=== PATIENT | male | born 1950 | race Caucasian/White ===

== ENCOUNTER 2016-12-02 19:26 | Inpatient (IN) | payer MEDICARE ==
[~2016-12-02] VITALS: Ht 190.5 cm; Wt 61.7 kg
[~2016-12-02 19:26] MED LIST: ASCORBIC ACID500 MG ORAL; BACLOFEN10 MG ORAL; CALCIUM CITRAT480 GM PO; CALMOSEPTINE1 APPLIC TOPIC; CIPRO500 MG PO; COLACE CLEAR50 MG PO; FLEET ENEMA133 M1 RC; PAPAYA100 MG PO; ROYAL JELLY200 MG PO; SANTYL30 GM TP; TYLENOL EXTRA500 MG ORAL; VICODIN 5-5001 EACH PO; VITAMIN A10000 UNIT ORAL; VITAMIN B-12100 MCG ORAL; VITAMIN C250 MG ORAL; VITAMIN D-32000 UNI1 PO; VITAMIN D2000 UNI2 PO; VITAMIN D400 UNI2 PO; XANAX0.25 MG ORAL
--- NOTE | 2016-12-02 19:44 | Emergency Room Report ---
History of Present Illness General Chief Complaint: Generalized Weakness Source: Patient, EMS, Caregiver, PMD Present Illness HPI The patient is brought by EMS. According to the red mud thickener operator he had altered mentation today. She did not notice any cough. Paramedics had noticed cough and also is warm to touch. 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 He also has a suprapubic catheter. He eats by mouth and does not have a gastrostomy tube. The red mud thickener operator also states that he has a his sacral decubitus. His primary states he has been smoking a lot of THC. He has not been taking in fluids or much food. PMD concerned about severe dehydration. He denies pain - chest pain, headache, abdominal pain, extremity pain. Depressed at times. Weakness in all extremities. Allergies: Coded Allergies: ASPIRIN (Verified Adverse Reaction, Unknown, GI BLEED, 12/14/10) Patient History Past Medical History: see triage record Social History: Reports: drug use - thc Social History Narrative red mud thickener operator Reviewed Nursing Documentation: PMH: Agreed, PSxH: Agreed Nursing Documentation-PMH Hx Cancer: No Hx Gastrointestinal Problems: Yes Hx Neurological Problems: Yes - MS Hx Multiple Sclerosis: Yes Review of Systems All Other Systems: negative except mentioned in HPI Physical Exam Vital Signs Date Time Temp Pulse Resp B/P Pulse Ox O2 Delivery O2 Flow Rate FiO2 12/02/16 19:19 99.0 86 22 102/50 97 Room Air Sp02 EP Interpretation: reviewed, normal General Appearance: no apparent distress, alert, GCS 15, Chronically Ill Head: normocephalic Eyes: bilateral eye PERRL, bilateral eye normal inspection ENT: dry mucus membranes Neck: supple Respiratory: lungs clear, normal breath sounds, other - ronchorous cough Cardiovascular #1: regular rate, rhythm Cardiovascular #2: 2+ radial (R) Gastrointestinal: normal inspection, normal bowel sounds, non tender, no mass, non-distended, other - suprapubic cath Musculoskeletal: back normal, other - atrophy Neurologic: alert, oriented - X2 Psychiatric: depressed affect Reflexes: 3+ knee (R), 3+ knee (L) Skin: normal inspection, warm/dry, other - sacral decub Medical Decision Making Diagnostic Impression: Primary Impression: Pneumonia Qualified Codes: J18.1 - Lobar pneumonia, unspecified organism Additional Impressions: UTI (urinary tract infection) Qualified Codes: T83.510A - Infection and inflammatory reaction due to cystostomy catheter, initial encounter; N39.0 - Urinary tract infection, site not specified Multiple sclerosis Sacral decubitus ulcer Qualified Codes: L89.154 - Pressure ulcer of sacral region, stage 4 Dehydration ER Course Patient presents with altered mental status cough and fever. Differential includes sepsis, pneumonia, bronchitis, infection from other source (suprapubic cath). He is at high risk for aspiration with his multiple sclerosis. Evaluation will be with blood cultures, EKG, lactate, other labs, urinalysis and chest x-ray. CT of the head is not indicated at this time. The patient received aggressive fluid hydration and also antibiotics a been ordered. Labs remarkable for elevated WBC, pyuria, normal lactic acid. EKG unremarkable. CXR with infiltrate. Patient BP low. Hydration progressing slowly. Fluids increased. Improved. Admit med, Dr. Tijerina. Laboratory Tests Test 12/02/16 19:43 12/02/16 19:45 White Blood Count 13.9 K/UL (4.8-10.8) H Red Blood Count 4.15 M/UL (4.70-6.10) L Hemoglobin 13.0 G/DL (14.2-18.0) L Hematocrit 38.1 % (42.0-52.0) L Mean Corpuscular Volume 92 FL (80-99) Mean Corpuscular Hemoglobin 31.3 PG (27.0-31.0) H Mean Corpuscular Hemoglobin Concent 34.0 G/DL (32.0-36.0) Red Cell Distribution Width 13.1 % (11.6-14.8) Platelet Count 123 K/UL (150-450) L Mean Platelet Volume 7.6 FL (6.5-10.1) Neutrophils (%) (Auto) % (45.0-75.0) Lymphocytes (%) (Auto) % (20.0-45.0) Monocytes (%) (Auto) % (1.0-10.0) Eosinophils (%) (Auto) % (0.0-3.0) Basophils (%) (Auto) % (0.0-2.0) Differential Total Cells Counted 100 Neutrophils % (Manual) 83 % (45-75) H Lymphocytes % (Manual) 12 % (20-45) L Monocytes % (Manual) 3 % (1-10) Eosinophils % (Manual) 0 % (0-3) Basophils % (Manual) 0 % (0-2) Band Neutrophils 2 % (0-8) Platelet Estimate Decreased L Platelet Morphology Normal Anisocytosis 1+ Prothrombin Time 14.4 SEC (9.30-11.50) H Prothrombin Time INR 1.4 (0.9-1.1) H PTT 32 SEC (23-33) Sodium Level 139 mEQ/L (135-145) Potassium Level 4.4 mEQ/L (3.4-4.9) Chloride Level 101 mEQ/L (98-107) Carbon Dioxide Level 23 mEQ/L (20-30) Anion Gap 15 (5-15) Blood Urea Nitrogen 23 mg/dL (7-23) Creatinine 1.0 mg/dL (0.7-1.2) Estimate Glomerular Filtration Rate > 60 mL/min (>60) Glucose Level 112 mg/dL (74-106) H Lactic Acid Level 0.90 mmol/L (0.66-2.22) Calcium Level 8.0 mg/dL (8.6-10.2) L Total Bilirubin 0.5 mg/dL (0.0-1.2) Aspartate Amino Transferase (AST) 20 U/L (5-40) Alanine Aminotransferase (ALT) 7 U/L (3-41) Alkaline Phosphatase 59 U/L (40-129) Total Creatine Kinase 41 U/L (38-174) Troponin I < 0.30 ng/mL (<=0.30) Pro-B-Type Natriuretic Peptide 427 pg/mL (0-125) H Total Protein 6.0 g/dL (6.6-8.7) L Albumin 2.7 g/dL (3.5-5.2) L Globulin 3.3 g/dL Albumin/Globulin Ratio 0.8 (1.0-2.7) L Urine Color Pale yellow Urine Appearance Slightly cloudy Urine pH 9 (4.5-8.0) Urine Specific [place] 1.010 (1.005-1.035) Urine Protein 3+ (NEGATIVE) H Urine Glucose (UA) Negative (NEGATIVE) Urine Ketones Negative (NEGATIVE) Urine Occult Blood 5+ (NEGATIVE) H Urine Nitrite Positive (NEGATIVE) H Urine Bilirubin Negative (NEGATIVE) Urine Urobilinogen Normal MG/DL (0.0-1.0) Urine Leukocyte Esterase 3+ (NEGATIVE) H Urine RBC 10-15 /HPF (0 - 0) H Urine WBC 5-10 /HPF (0 - 0) H Urine Squamous Epithelial Cells None /LPF (NONE/OCC) Urine Amorphous Sediment Moderate /LPF (NONE) H Urine Bacteria Many /HPF (NONE) H EKG Diagnostic Results Rate: normal Rhythm: NSR ST Segments: no acute changes Rhythm Strip Diag. Results EP Interpretation: yes Rhythm: NSR, no PVC's, no ectopy Chest X-Ray Diagnostic Results Chest X-Ray Ordered: Yes # of Views/Limited/Complete: 1 View EP Interpretation: Yes Interpretation: no effusion, no pneumothorax, other - infiltrate retrocardiac Indication: Other Impression: Other Interpreting ER Provider: kika Last Vital Signs Date Time Temp Pulse Resp B/P Pulse Ox O2 Delivery O2 Flow Rate FiO2 12/03/16 01:03 97.5 68 21 110/60 97 Room Air Status: improved Disposition: ADMITTED INPATIENT Condition: Serious Braxton Miranda M.D. Dec 02, 2016 19:44
[2016-12-02] MEDS ORDERED: Acetaminophen 500mg (ES) tab ORAL ONE (19:45)
[2016-12-02] MEDS ORDERED: cefTRIAXone 1 GM in NS 55 ML IV ONE (19:45)
[2016-12-02 20:08] LABS: MEAN CORPUSCULAR HEMOGLOBIN 31.3 PG (27.0-31.0); MEAN CORPUSCULAR VOLUME 92 FL (80-99); MEAN PLATELET VOLUME 7.6 FL (6.5-10.1); PLATELET COUNT 123 K/UL (150-450); RED BLOOD COUNT 4.15 M/UL (4.70-6.10); RED CELL DISTRIBUTION WIDTH 13.1 % (11.6-14.8); WHITE BLOOD COUNT 13.9 K/UL (4.8-10.8)
[2016-12-02 20:09] VITALS: BP 110/47
[2016-12-02 20:24] LABS: INR 1.4 (0.9-1.1); PROTHROMBIN TIME 14.4 SEC (9.30-11.50)
[2016-12-02 20:32] LABS: TROPONIN I < 0.30 ng/mL (<=0.30)
[2016-12-02 20:35] LABS: ALANINE AMINOTRANSFERASE 7 U/L (3-41); ALBUMIN/GLOBULIN RATIO 0.8 (1.0-2.7); ANION GAP 15 (5-15); ASPARTATE AMINO TRANSFERASE 20 U/L (5-40); CARBON DIOXIDE 23 mEQ/L (20-30); CHLORIDE 101 mEQ/L (98-107); GLOMERULAR FILTRATION RATE > 60 mL/min (>60); HEMOLYSIS 160; POTASSIUM 4.4 mEQ/L (3.4-4.9); SODIUM 139 mEQ/L (135-145)
[2016-12-02 20:43] LABS: APPEARANCE,URINE SLIGHTLY CLOUDY; KETONES,URINE NEGATIVE (NEGATIVE); LEUKOCYTE ESTERASE ,URINE 3+ (NEGATIVE); NITRITE,URINE POSITIVE (NEGATIVE); PH,URINE 9 (4.5-8.0); PROTEIN,URINE 3+ (NEGATIVE); UROBILINOGEN,URINE NORMAL MG/DL (0.0-1.0)
[2016-12-02 20:56] LABS: AMORPHOUS SEDIMENT,UR MODERATE /LPF; BACTERIA,URINE MANY /HPF
[2016-12-02 21:13] LABS: ANISOCYTOSIS 1+; BAND NEUTROPHILS % (MANUAL) 2 % (0-8); BASOPHILS % (MANUAL) 0 % (0-2); EOSINOPHILS % (MANUAL) 0 % (0-3); LYMPHOCYTES % (MANUAL) 12 % (20-45); NEUTROPHILS % (MANUAL) 83 % (45-75); PLATELET ESTIMATE DECREASED; PLATELET MORPHOLOGY NORMAL; TOTAL CELLS COUNTED 100
[2016-12-02] MEDS ORDERED: NS 1000ml 2,200 ML IVLG ONE (22:15)
[2016-12-02 22:48] VITALS: BP 79/43
--- NOTE | 2016-12-02 22:56 | History and Physical ---
History of Present Illness General Date patient seen: Dec 02, 2016 Time patient seen: 19:00 Reason for Hospitalization: Generalized Weakness Present Illness HPI 66y/o male with pmh of advanced multiple sclerosis x 20 years, severe contractures, spasticity, chronic decubitus ulcers, chronic bladder dystonia s/ p suprapubic catheter who presents with AMS. Pt noted lives w/ full-time caregiver who noted pt to be more altered today. Pt has been smoking a lot of THC and has not been taking in much fluid or food. Paramedics noted pt to be coughing. Pt denies chest pain, SOB, f/c, n/v, d/c, abd pain. In ED, pt with fever to 102, labs showed WBC 13.3K. Pt given 1L NS bolus x2, ceftriaxone and levaquin. Allergies: Coded Allergies: ASPIRIN (Verified Adverse Reaction, Unknown, GI BLEED, 12/14/10) Medication History Scheduled Alprazolam* (Xanax*), 0.25 MG ORAL BEDTIME, (Reported) Ascorbic Acid* (Vitamin C*), 250 MG ORAL DAILY, (Reported) Ascorbic Acid* (Ascorbic Acid*), 500 MG ORAL TWICE A DAY, (Reported) Baclofen* (Baclofen*), 40 MG ORAL THREE TIMES A DAY, (Reported) Calcium Citrate (Calcium Citrate), 950 GM PO DAILY, (Reported) Cholecalciferol (Vitamin D3) (Vitamin D-3), 2,000 UNIT PO DAILY, (Reported) Cholecalciferol (Vitamin D3) (Vitamin D), 2,000 UNIT PO DAILY, (Reported) Ciprofloxacin* (Cipro*), 500 MG PO BID, (Reported) Cyanocobalamin (Vitamin B-12), 100 MCG ORAL DAILY, (Reported) Hydrocodone/Acetaminophen 5-500 (Vicodin 5-500), 1 TAB PO Q8H Papain (Papaya), 100 MG PO DAILY, (Reported) Kalida Jelly (Kalida Jelly), 1 SCOOP PO DAILY, (Reported) Vitamin A* (Vitamin A*), 10,000 UNIT ORAL DAILY, (Reported) Scheduled PRN Acetaminophen* (Tylenol Extra Strength*), 500 MG ORAL Q4HR PRN for Mild Pain/ Temp > 100.5, (Reported) Docusate Sodium (Colace Clear), 100 MG PO DAILY PRN for Constipation, (Reported) Menthol (Calmoseptine Ointment), 1 APPLIC TOPIC THREE TIMES A DAY PRN for rash, (Reported) Na Phos,M-B/Na Phos,Di-Ba (Fleet Enema), 133 ML RC DAILY PRN for Constipation, ( Reported) Miscellaneous Medications Cholecalciferol (Vitamin D3) (Vitamin D), 400 UNIT PO, (Reported) Collagenase Clostridium Hist. (Santyl), 1 APPLIC TP, (Reported) Patient History History Provided By: Patient, Medical Record, Caregiver, PMD Healthcare decision maker Resuscitation status Advanced Directive on File Family History Family History: Patient reports no known family medical history. Social History Social History: (1) Lives with caregiver Review of Systems ROS Narrative CONSTITUTIONAL: No weight loss, fever, chills, weakness or fatigue. HEENT: Eyes: No visual loss, blurred vision, double vision or yellow sclerae. Ears, Nose, Throat: No hearing loss, sneezing, congestion, runny nose or sore throat. SKIN: No rash or itching. CARDIOVASCULAR: No chest pain, chest pressure or chest discomfort. No palpitations or edema. RESPIRATORY: No shortness of breath, cough or sputum. GASTROINTESTINAL: No anorexia, nausea, vomiting or diarrhea. No abdominal pain or blood. NEUROLOGICAL: No headache, dizziness, syncope, paralysis, ataxia, numbness or tingling in the extremities. No change in bowel or bladder control. MUSCULOSKELETAL: No muscle, back pain, joint pain or stiffness. HEMATOLOGIC: No anemia, bleeding or bruising. LYMPHATICS: No enlarged nodes. No history of splenectomy. PSYCHIATRIC: No history of depression or anxiety. ENDOCRINOLOGIC: No reports of sweating, cold or heat intolerance. No polyuria or polydipsia. ALLERGIES: No history of asthma, hives, eczema or rhinitis. Physical Exam Physical Exam Narrative General: alert, cooperative, no distress, appears stated age Head: normocephalic, without obvious abnormality, atraumatic Eyes: conjunctivae/corneas clear. PERRL, EOM's intact Throat: lips, mucosa, and tongue normal. MMM Neck: supple, symmetrical, trachea midline, and no JVD Lungs: clear to auscultation bilaterally Heart: regular rate and rhythm, S1, S2 normal, no murmur, click, rub or gallop Abdomen: soft, non-tender, non-distended, bowel sounds normal; no masses or organomegaly : +suprapubic catheter c/d/i Extremities: extremities normal, atraumatic, no cyanosis or edema, +BLE contractures Pulses: 2+ and symmetric Skin: skin color, texture, turgor normal; no rashes or lesions Neurologic: grossly normal, no focal deficits Last 24 Hour Vital Signs Date Time Temp Pulse Resp B/P Pulse Ox O2 Delivery O2 Flow Rate FiO2 12/02/16 22:48 97.9 70 16 79/43 97 Room Air 12/02/16 20:09 102.1 75 20 110/47 98 Room Air 12/02/16 19:19 99.0 86 22 102/50 97 Room Air Laboratory Tests Test 12/02/16 19:43 12/02/16 19:45 White Blood Count 13.9 K/UL (4.8-10.8) H Red Blood Count 4.15 M/UL (4.70-6.10) L Hemoglobin 13.0 G/DL (14.2-18.0) L Hematocrit 38.1 % (42.0-52.0) L Mean Corpuscular Volume 92 FL (80-99) Mean Corpuscular Hemoglobin 31.3 PG (27.0-31.0) H Mean Corpuscular Hemoglobin Concent 34.0 G/DL (32.0-36.0) Red Cell Distribution Width 13.1 % (11.6-14.8) Platelet Count 123 K/UL (150-450) L Mean Platelet Volume 7.6 FL (6.5-10.1) Neutrophils (%) (Auto) % (45.0-75.0) Lymphocytes (%) (Auto) % (20.0-45.0) Monocytes (%) (Auto) % (1.0-10.0) Eosinophils (%) (Auto) % (0.0-3.0) Basophils (%) (Auto) % (0.0-2.0) Differential Total Cells Counted 100 Neutrophils % (Manual) 83 % (45-75) H Lymphocytes % (Manual) 12 % (20-45) L Monocytes % (Manual) 3 % (1-10) Eosinophils % (Manual) 0 % (0-3) Basophils % (Manual) 0 % (0-2) Band Neutrophils 2 % (0-8) Platelet Estimate Decreased L Platelet Morphology Normal Anisocytosis 1+ Prothrombin Time 14.4 SEC (9.30-11.50) H Prothromb Time International Ratio 1.4 (0.9-1.1) H Activated Partial Thromboplast Time 32 SEC (23-33) Sodium Level 139 mEQ/L (135-145) Potassium Level 4.4 mEQ/L (3.4-4.9) Chloride Level 101 mEQ/L (98-107) Carbon Dioxide Level 23 mEQ/L (20-30) Anion Gap 15 (5-15) Blood Urea Nitrogen 23 mg/dL (7-23) Creatinine 1.0 mg/dL (0.7-1.2) Estimat Glomerular Filtration Rate > 60 mL/min (>60) Glucose Level 112 mg/dL (74-106) H Lactic Acid Level 0.90 mmol/L (0.66-2.22) Calcium Level 8.0 mg/dL (8.6-10.2) L Total Bilirubin 0.5 mg/dL (0.0-1.2) Aspartate Amino Transf (AST/SGOT) 20 U/L (5-40) Alanine Aminotransferase (ALT/SGPT) 7 U/L (3-41) Alkaline Phosphatase 59 U/L (40-129) Total Creatine Kinase 41 U/L (38-174) Troponin I < 0.30 ng/mL (<=0.30) Pro-B-Type Natriuretic Peptide 427 pg/mL (0-125) H Total Protein 6.0 g/dL (6.6-8.7) L Albumin 2.7 g/dL (3.5-5.2) L Globulin 3.3 g/dL Albumin/Globulin Ratio 0.8 (1.0-2.7) L Urine Color Pale yellow Urine Appearance Slightly cloudy Urine pH 9 (4.5-8.0) Urine Specific [place] 1.010 (1.005-1.035) Urine Protein 3+ (NEGATIVE) H Urine Glucose (UA) Negative (NEGATIVE) Urine Ketones Negative (NEGATIVE) Urine Occult Blood 5+ (NEGATIVE) H Urine Nitrite Positive (NEGATIVE) H Urine Bilirubin Negative (NEGATIVE) Urine Urobilinogen Normal MG/DL (0.0-1.0) Urine Leukocyte Esterase 3+ (NEGATIVE) H Urine RBC 10-15 /HPF (0 - 0) H Urine WBC 5-10 /HPF (0 - 0) H Urine Squamous Epithelial Cells None /LPF (NONE/OCC) Urine Amorphous Sediment Moderate /LPF (NONE) H Urine Bacteria Many /HPF (NONE) H Height (Feet): 6 Height (Inches): 3.00 Weight (Pounds): 160 Medications Current Medications Medications (Trade) Dose Ordered Sig/Felicita Route PRN Reason Start Time Stop Time Status Last Admin Dose Admin Sodium Chloride 1,000 ml @ 300 mls/hr Q3H20M IV 12/02/16 19:45 01/01/17 19:44 12/02/16 21:13 Sodium Chloride (Sodium Chloride 1000ml bag) 2,200 ml @ 1,200 mls/hr Q1H50M ONCE IVLG 12/02/16 22:15 12/03/16 00:04 Assessment/Plan Problem List: (1) Sepsis ICD Codes: A41.9 - Sepsis, unspecified organism SNOMED: 25266611 (2) Acute toxic metabolic encephalopathy (3) UTI (urinary tract infection) ICD Codes: N39.0 - Urinary tract infection SNOMED: 10645881 (4) Pneumonia ICD Codes: J18.9 - Pneumonia, unspecified organism SNOMED: 341133386 Qualifiers: (5) Multiple sclerosis ICD Codes: G35 - Multiple sclerosis SNOMED: 93361102 (6) Sacral decubitus ulcer ICD Codes: L89.159 - Pressure ulcer of sacral region, unspecified stage SNOMED: 233116441 Qualifiers: Qualified Codes: L89.154 - Pressure ulcer of sacral region, stage 4 Status: stable Status Narrative Sepsis 2/2 UTI and/or pneumonia Admit inpt Empiric vanco and cefepime (12/02-) F/u urine cultures F/u blood cultures mIVFs Sputum culture if pt able to provide it NPO pending swallow eval PT/OT Cont home meds DVT Prophylaxis: SCD, HSQ Code Status: Full Hospital Classification Declaration: Based on this initial evaluation, and depending on the patient's clinical course, I anticipate that this patient will require hospitalization for 2-3 days for sepsis, UTI, PNA, and close respiratory /hemodynamic monitoring. Disposition: Once the patient is stable to leave the hospital, I anticipate the patient will likely be discharged to the following environment: home with vs SNF I spent 70 minutes on this patient's case, and 39 minutes were dedicated to counseling and/or care coordination. Discussed with patient/family, nursing staff, SW/CM, ED physician regarding clinical status, treatment course, and disposition planning. Time of note may not reflect time of encounter. Ailyn Juan M.D. Dec 02, 2016 22:56
[2016-12-02] MEDS ORDERED: DuoNeb 0.5-3(2.5)mg/3ml neb HHN PRN (23:00)
[2016-12-02] MEDS ORDERED: Milk of Magnesia 30ml Ud ORAL PRN (23:00)
[2016-12-02] MEDS ORDERED: DuoNeb 0.5-3(2.5)mg/3ml neb HHN SCH (23:00)
[2016-12-02] MEDS ORDERED: Miralax 17gm pkt ORAL PRN (23:00)
[2016-12-02] MEDS ORDERED: Acetaminophen 650 MG SUPP RECTAL PRN ×2 (23:00)
[2016-12-02] MEDS ORDERED: LORazepam Inj 2mg/ml 1ml IV PRN (23:00)
[2016-12-02] MEDS ORDERED: Vancomycin 1.5 GM in D5W 325 ML IVPB SCH (23:30)
[2016-12-03] VITALS (10 sets, daily range): BP systolic 83–113; BP diastolic 41–60
[2016-12-03] MEDS: Cefepime HCl 1 GM in D5W 55 ML IVPB SCH ×3 (03:00→20:50)
[2016-12-03] MEDS: D5 1/2NS 1,000 ML IV SCH ×2 (04:41→17:09)
[2016-12-03] MEDS: DuoNeb 0.5-3(2.5)mg/3ml neb HHN SCH ×3 (06:55→19:50)
[2016-12-03] MEDS ORDERED: DuoNeb 0.5-3(2.5)mg/3ml neb HHN SCH (07:00)
[2016-12-03 09:46] LABS: MEAN CORPUSCULAR HEMOGLOBIN 31.1 PG (27.0-31.0); MEAN CORPUSCULAR HGB CONC 33.5 G/DL (32.0-36.0); MEAN CORPUSCULAR VOLUME 93 FL (80-99); MEAN PLATELET VOLUME 7.5 FL (6.5-10.1); PLATELET COUNT 116 K/UL (150-450); RED BLOOD COUNT 4.19 M/UL (4.70-6.10); RED CELL DISTRIBUTION WIDTH 12.9 % (11.6-14.8); WHITE BLOOD COUNT 10.5 K/UL (4.8-10.8)
[2016-12-03] MEDS: Ascorbic Acid 500mg tab ORAL SCH ×2 (09:51→18:36)
[2016-12-03] MEDS: Vitamin B-12 100mcg tab ORAL SCH (09:51)
[2016-12-03] MEDS: Docusate 100mg cap ORAL SCH ×2 (09:52→20:50)
[2016-12-03 10:00] LABS: ALANINE AMINOTRANSFERASE 7 U/L (3-41); ANION GAP 15 (5-15); ASPARTATE AMINO TRANSFERASE 13 U/L (5-40); CALCIUM 8.6 mg/dL (8.6-10.2); CARBON DIOXIDE 22 mEQ/L (20-30); CHLORIDE 103 mEQ/L (98-107); CREATININE 0.9 mg/dL (0.7-1.2); GLOMERULAR FILTRATION RATE > 60 mL/min (>60); HEMOLYSIS 6; MAGNESIUM 1.6 mg/dL (1.7-2.5); POTASSIUM 3.6 mEQ/L (3.4-4.9); SODIUM 140 mEQ/L (135-145); TOTAL PROTEIN 6.1 g/dL (6.6-8.7)
[2016-12-03] MEDS: Vancomycin 1.5 GM in D5W 325 ML IVPB SCH ×2 (10:00→22:29)
[2016-12-03 10:03] LABS: THYROID STIMULATING HORMONE 0.932 uIU/mL (0.300-4.500)
[2016-12-03 10:25] LABS: LYMPHOCYTES % (MANUAL) 4 % (20-45); NEUTROPHILS % (MANUAL) 92 % (45-75); TOTAL CELLS COUNTED 100
[2016-12-03 10:26] LABS: BAND NEUTROPHILS % (MANUAL) 0 % (0-8); BASOPHILS % (MANUAL) 0 % (0-2); EOSINOPHILS % (MANUAL) 0 % (0-3); PLATELET ESTIMATE DECREASED; PLATELET MORPHOLOGY NORMAL
--- NOTE | 2016-12-03 14:46 | Consultation ---
History of Present Illness General Date patient seen: Dec 03, 2016 Chief Complaint: Generalized Weakness Referring physician: Dr. Robertson Present Illness HPI 66 year old male with hx of MS, suprapubic catheter, saccral decubiti brought in by EMS with CC of altered mentation today. Paramedics had noticed cough and also is warm to touch. His primary states he has been smoking a lot of THC. He has not been taking in fluids or much food. Pt was hypotensive in ER, and had elevated WBC. He is admitted to telemetry for further management. Allergies: Coded Allergies: ASPIRIN (Verified Adverse Reaction, Unknown, GI BLEED, 12/14/10) Medication History Scheduled Alprazolam* (Xanax*), 0.25 MG ORAL BEDTIME, (Reported) Ascorbic Acid* (Vitamin C*), 250 MG ORAL DAILY, (Reported) Ascorbic Acid* (Ascorbic Acid*), 500 MG ORAL TWICE A DAY, (Reported) Baclofen* (Baclofen*), 40 MG ORAL THREE TIMES A DAY, (Reported) Calcium Citrate (Calcium Citrate), 950 GM PO DAILY, (Reported) Cholecalciferol (Vitamin D3) (Vitamin D-3), 2,000 UNIT PO DAILY, (Reported) Cholecalciferol (Vitamin D3) (Vitamin D), 2,000 UNIT PO DAILY, (Reported) Ciprofloxacin* (Cipro*), 500 MG PO BID, (Reported) Cyanocobalamin (Vitamin B-12), 100 MCG ORAL DAILY, (Reported) Hydrocodone/Acetaminophen 5-500 (Vicodin 5-500), 1 TAB PO Q8H Papain (Papaya), 100 MG PO DAILY, (Reported) [place] Jelly ([place] Jelly), 1 SCOOP PO DAILY, (Reported) Vitamin A* (Vitamin A*), 10,000 UNIT ORAL DAILY, (Reported) Scheduled PRN Acetaminophen* (Tylenol Extra Strength*), 500 MG ORAL Q4HR PRN for Mild Pain/ Temp > 100.5, (Reported) Docusate Sodium (Colace Clear), 100 MG PO DAILY PRN for Constipation, (Reported) Menthol (Calmoseptine Ointment), 1 APPLIC TOPIC THREE TIMES A DAY PRN for rash, (Reported) Na Phos,M-B/Na Phos,Di-Ba (Fleet Enema), 133 ML RC DAILY PRN for Constipation, ( Reported) Miscellaneous Medications Cholecalciferol (Vitamin D3) (Vitamin D), 400 UNIT PO, (Reported) Collagenase Clostridium Hist. (Santyl), 1 APPLIC TP, (Reported) Patient History Healthcare decision maker Resuscitation status Full Code Advanced Directive on File Past Medical/Surgical History Past Medical/Surgical History: (1) Sacral decubitus ulcer (2) Multiple sclerosis Review of Systems All Other Systems: negative except mentioned in HPI Physical Exam General Appearance: cachetic Lines, tubes and drains: peripheral, central line Neck: non-tender, normal alignment Respiratory/Chest: chest wall non-tender, lungs clear Cardiovascular/Chest: normal peripheral pulses, normal rate Abdomen: normal bowel sounds, non tender Genitourinary/Rectal: normal genital exam, normal rectal exam Extremities: normal range of motion, non-tender Skin Exam: normal pigmentation Last 24 Hour Vital Signs Date Time Temp Pulse Resp B/P Pulse Ox O2 Delivery O2 Flow Rate FiO2 12/03/16 12:06 98.4 81 18 83/45 94 Nasal Cannula 2.0 12/03/16 08:03 98.6 72 18 113/55 97 Nasal Cannula 2.0 12/03/16 06:55 74 18 94 Nasal Cannula 12/03/16 06:55 74 18 94 Room Air 12/03/16 06:55 74 18 Nasal Cannula 2.0 12/03/16 06:30 70 18 104/52 Nasal Cannula 2.0 12/03/16 05:00 71 19 97/55 Nasal Cannula 2.0 12/03/16 04:00 77 12/03/16 04:00 99.0 68 22 87/43 94 Room Air 12/03/16 01:03 97.5 68 21 110/60 97 Room Air 12/03/16 00:41 97.9 64 12 103/43 98 Room Air 12/03/16 00:15 97.9 64 12 103/43 98 Room Air 12/02/16 22:48 97.9 70 16 79/43 97 Room Air 12/02/16 20:09 102.1 75 20 110/47 98 Room Air 12/02/16 19:19 99.0 86 22 102/50 97 Room Air Intake and Output 12/02/16 12/03/16 19:00 07:00 Intake Total 1075 ml Output Total 1100 ml Balance -25 ml IV Total 1075 ml Output Urine Total 1100 ml # Bowel Movements 1 Laboratory Tests Test 12/02/16 19:43 12/02/16 19:45 12/03/16 09:30 White Blood Count 13.9 K/UL (4.8-10.8) H 10.5 K/UL (4.8-10.8) Red Blood Count 4.15 M/UL (4.70-6.10) L 4.19 M/UL (4.70-6.10) L Hemoglobin 13.0 G/DL (14.2-18.0) L 13.1 G/DL (14.2-18.0) L Hematocrit 38.1 % (42.0-52.0) L 39.0 % (42.0-52.0) L Mean Corpuscular Volume 92 FL (80-99) 93 FL (80-99) Mean Corpuscular Hemoglobin 31.3 PG (27.0-31.0) H 31.1 PG (27.0-31.0) H Mean Corpuscular Hemoglobin Concent 34.0 G/DL (32.0-36.0) 33.5 G/DL (32.0-36.0) Red Cell Distribution Width 13.1 % (11.6-14.8) 12.9 % (11.6-14.8) Platelet Count 123 K/UL (150-450) L 116 K/UL (150-450) L Mean Platelet Volume 7.6 FL (6.5-10.1) 7.5 FL (6.5-10.1) Neutrophils (%) (Auto) % (45.0-75.0) % (45.0-75.0) Lymphocytes (%) (Auto) % (20.0-45.0) % (20.0-45.0) Monocytes (%) (Auto) % (1.0-10.0) % (1.0-10.0) Eosinophils (%) (Auto) % (0.0-3.0) % (0.0-3.0) Basophils (%) (Auto) % (0.0-2.0) % (0.0-2.0) Differential Total Cells Counted 100 100 Neutrophils % (Manual) 83 % (45-75) H 92 % (45-75) H Lymphocytes % (Manual) 12 % (20-45) L 4 % (20-45) L Monocytes % (Manual) 3 % (1-10) 4 % (1-10) Eosinophils % (Manual) 0 % (0-3) 0 % (0-3) Basophils % (Manual) 0 % (0-2) 0 % (0-2) Band Neutrophils 2 % (0-8) 0 % (0-8) Platelet Estimate Decreased L Decreased L Platelet Morphology Normal Normal Anisocytosis 1+ Prothrombin Time 14.4 SEC (9.30-11.50) H Prothromb Time International Ratio 1.4 (0.9-1.1) H Activated Partial Thromboplast Time 32 SEC (23-33) Sodium Level 139 mEQ/L (135-145) 140 mEQ/L (135-145) Potassium Level 4.4 mEQ/L (3.4-4.9) 3.6 mEQ/L (3.4-4.9) Chloride Level 101 mEQ/L (98-107) 103 mEQ/L (98-107) Carbon Dioxide Level 23 mEQ/L (20-30) 22 mEQ/L (20-30) Anion Gap 15 (5-15) 15 (5-15) Blood Urea Nitrogen 23 mg/dL (7-23) 18 mg/dL (7-23) Creatinine 1.0 mg/dL (0.7-1.2) 0.9 mg/dL (0.7-1.2) Estimat Glomerular Filtration Rate > 60 mL/min (>60) > 60 mL/min (>60) Glucose Level 112 mg/dL (74-106) H 103 mg/dL (74-106) Lactic Acid Level 0.90 mmol/L (0.66-2.22) Calcium Level 8.0 mg/dL (8.6-10.2) L 8.6 mg/dL (8.6-10.2) Total Bilirubin 0.5 mg/dL (0.0-1.2) 0.5 mg/dL (0.0-1.2) Aspartate Amino Transf (AST/SGOT) 20 U/L (5-40) 13 U/L (5-40) Alanine Aminotransferase (ALT/SGPT) 7 U/L (3-41) 7 U/L (3-41) Alkaline Phosphatase 59 U/L (40-129) 64 U/L (40-129) Total Creatine Kinase 41 U/L (38-174) Troponin I < 0.30 ng/mL (<=0.30) Pro-B-Type Natriuretic Peptide 427 pg/mL (0-125) H Total Protein 6.0 g/dL (6.6-8.7) L 6.1 g/dL (6.6-8.7) L Albumin 2.7 g/dL (3.5-5.2) L 3.1 g/dL (3.5-5.2) L Globulin 3.3 g/dL 3.0 g/dL Albumin/Globulin Ratio 0.8 (1.0-2.7) L 1.0 (1.0-2.7) Urine Color Pale yellow Urine Appearance Slightly cloudy Urine pH 9 (4.5-8.0) Urine Specific [place] 1.010 (1.005-1.035) Urine Protein 3+ (NEGATIVE) H Urine Glucose (UA) Negative (NEGATIVE) Urine Ketones Negative (NEGATIVE) Urine Occult Blood 5+ (NEGATIVE) H Urine Nitrite Positive (NEGATIVE) H Urine Bilirubin Negative (NEGATIVE) Urine Urobilinogen Normal MG/DL (0.0-1.0) Urine Leukocyte Esterase 3+ (NEGATIVE) H Urine RBC 10-15 /HPF (0 - 0) H Urine WBC 5-10 /HPF (0 - 0) H Urine Squamous Epithelial Cells None /LPF (NONE/OCC) Urine Amorphous Sediment Moderate /LPF (NONE) H Urine Bacteria Many /HPF (NONE) H Red Blood Cell Morphology Normal Magnesium Level 1.6 mg/dL (1.7-2.5) L Vitamin B12 Level 316 pg/mL (211-946) Vitamin D 25-Hydroxy Pending 25-Hydroxy Vitamin D2 Pending 25-Hydroxy Vitamin D3 Pending Folate Pending Thyroid Stimulating Hormone (TSH) 0.932 uIU/mL (0.300-4.500) Microbiology Date/Time Source Procedure Growth Status 12/02/16 19:45 Urine,Clean Catch Urine Culture - Preliminary Resulted Height (Feet): 6 Height (Inches): 3.00 Weight (Pounds): 136 Medications Current Medications Medications (Trade) Dose Ordered Sig/Felicita Route PRN Reason Start Time Stop Time Status Last Admin Dose Admin Acetaminophen (Tylenol) 650 mg Q4H PRN ORAL Mild Pain (Pain Scale 1-3) 12/02/16 23:00 01/01/17 22:59 Acetaminophen (Tylenol) 650 mg Q4H PRN ORAL fever 12/02/16 23:00 01/01/17 22:59 Acetaminophen (Tylenol) 650 mg Q4H PRN RECTAL Mild Pain (Pain Scale 1-3) 12/02/16 23:00 01/01/17 22:59 Acetaminophen (Tylenol) 650 mg Q4H PRN RECTAL fever 12/02/16 23:00 01/01/17 22:59 Albuterol/ Ipratropium (DuoNeb 0.5-3(2.5)mg/3ml) 3 ml Q4H PRN HHN Shortness of Breath 12/02/16 23:00 12/07/16 22:59 Albuterol/ Ipratropium (DuoNeb 0.5-3(2.5)mg/3ml) 3 ml Q6HRT HHN 12/03/16 07:00 12/08/16 06:59 12/03/16 06:55 Alprazolam (Xanax) 0.25 mg BEDTIME ORAL 12/03/16 21:00 12/10/16 20:59 Ascorbic Acid (Vitamin C) 500 mg TWICE A DAY ORAL 12/03/16 09:00 01/02/17 08:59 12/03/16 09:51 Baclofen 40 mg 40 mg TID ORAL 12/03/16 09:00 01/02/17 08:59 12/03/16 14:29 Bisacodyl (Dulcolax) 10 mg HSPRN PRN RECTAL Constipation 12/02/16 23:00 01/01/17 22:59 Cefepime HCl/ Dextrose (Maxipime/D5W) 55 ml @ 110 mls/hr EVERY 12 HOURS IVPB 12/02/16 23:00 12/09/16 22:59 12/03/16 10:00 Cyanocobalamin 100 mcg 100 mcg DAILY ORAL 12/03/16 09:00 01/02/17 08:59 12/03/16 09:51 Dextrose STAT PRN IV Hypoglycemia 12/02/16 23:00 01/01/17 22:59 Dextrose/Sodium Chloride (D5 0.45% NS) 1,000 ml @ 75 mls/hr [id number] IV 12/03/16 03:30 01/02/17 03:29 12/03/16 04:41 Docusate Sodium (Colace) 100 mg EVERY 12 HOURS ORAL 12/03/16 09:00 01/02/17 08:59 12/03/16 09:52 Heparin Sodium (Porcine) (Heparin 5000 units/ml) 5,000 units EVERY 12 HOURS SUBQ 12/03/16 09:00 01/02/17 08:59 UNV Lorazepam (Ativan 2mg/ml 1ml) 0.5 mg Q4H PRN IV For Anxiety 12/02/16 23:00 12/09/16 22:59 Magnesium Hydroxide (Mom) 30 ml HSPRN PRN ORAL Constipation 12/02/16 23:00 01/01/17 22:59 Magnesium Sulfate (Magnesium Sulfate 1gm/100ml) 100 ml @ 100 mls/hr Q1H IVPB 12/03/16 13:45 12/03/16 15:44 UNV Ondansetron HCl (Zofran) 4 mg Q6H PRN IVP Nausea & Vomiting 12/02/16 23:00 01/01/17 22:59 Polyethylene Glycol (Miralax) 17 gm HSPRN PRN ORAL Constipation 12/02/16 23:00 01/01/17 22:59 Vancomycin HCl (Vanco rx to dose) 1 ea DAILY PRN MISC Per rx protocol 12/02/16 23:00 01/01/17 22:59 Vancomycin HCl 1.5 gm/Dextrose 325 ml @ 162.5 mls/ hr Q12H IVPB 12/03/16 10:00 12/08/16 09:59 12/03/16 10:00 Assessment/Plan Problem List: (1) Sepsis ICD Codes: A41.9 - Sepsis, unspecified organism SNOMED: 86694441 (2) Sacral decubitus ulcer ICD Codes: L89.159 - Pressure ulcer of sacral region, unspecified stage SNOMED: 281321719 Qualifiers: Qualified Codes: L89.154 - Pressure ulcer of sacral region, stage 4 (3) Suprapubic catheter ICD Codes: Z93.59 - Other cystostomy status SNOMED: 049427588, 236018035 (4) Multiple sclerosis ICD Codes: G35 - Multiple sclerosis SNOMED: 66954269 Assessment/Plan IV antibiotics long cultures wound care check electrolytes OZZIE PAK Dec 03, 2016 14:46
--- NOTE | 2016-12-03 16:18 | Diagnostic Imaging Report ---
Indication: COUGH Technique: One view of the chest Comparison: 09/24/2014 Findings: There is suggestion of mild hyperinflation, particularly left upper lobe. Lungs and pleural spaces are otherwise clear. There is mild scoliotic deformity, may be in part be artifact of positioning. Heart size is normal. Impression: No definite acute process
--- NOTE | 2016-12-03 20:22 | Wound Care Consultation ---
Wound Assessment Wound Assessment #1: Wound Present on Admission: Yes New Wound: No Status Change of Wound: No Wound Location Body Site Modif: mid Wound Location Body Site: sacral Wound Type: pressure ulcer Fuentes Test: Does not Fuentes Pressure Ulcer Stage: IV/unstageable Wound Thickness: Full Thickness Wound Length: 4.5 Wound Width: 4.5 Wound Depth: utd Percent of Wound Bed Yellow/Wh: 40 Percent of Wound Purple/Maroon: 60 Wound Drainage Description: Serosanguineous Wound Drainage Amount: Scant Wound Drainage Odor: None/Absent Tissue Surrounding Wound: Erythemic Wound General Appearance: Reddened, Draining Wound Assessment #2: Wound Number: #2 Wound Present on Admission: Yes New Wound: No Status Change of Wound: No Wound Location Body Site Modif: right Wound Location Body Site: ischial tuberosity Wound Type: pressure ulcer Fuentes Test: Does not Fuentes Wound Thickness: Full Thickness Wound Length: 1.0 Wound Width: 1.5 Wound Depth: utd Percent of Wound Black/Brown: 100 Wound Drainage Amount: None Wound Drainage Odor: None/Absent Tissue Surrounding Wound: Intact Wound General Appearance: Asymptomatic Wound Assessment #3: Wound Number: #3 Wound Present on Admission: Yes New Wound: No Status Change of Wound: No Wound Location Body Site Modif: right Wound Location Body Site: trochanter Wound Type: pressure ulcer Fuentes Test: Does not Fuentes Pressure Ulcer Stage: deep tissue injury Wound Thickness: Full Thickness Wound Length: 2.0 Wound Width: 2.0 Wound Depth: utd Percent of Wound Purple/Maroon: 100 Wound Drainage Amount: None Wound Drainage Odor: None/Absent Tissue Surrounding Wound: full thickness scar tissue Wound General Appearance: Asymptomatic Wound Comment #1 Sacral unstageable pressure ulcer #2 Right trochanter DTI surrounding skin with full thickness scar issue #3 Right ischial tuberosity DTI pressure ulcer Recommendation -Sacral unstageable pressure ulcer Cleanse with saline, pat dry, apply Triad cream, cover with bordered gauze daily and PRN soiled/dislodged -Local wound care per protocol for DTI on right trochanter and right ischial tuberosity -Keep clean and dry -Turn and reposition -Optimize nutrition -Low air loss mattress -Offload both heels -Heel protector on both heels -Assess and f/u accordingly for any changes VIKI FORBES RN Dec 03, 2016 20:22
[2016-12-03] MEDS: Heparin 5000 units/ml inj SUBQ SCH (20:32)
[2016-12-03] MEDS ORDERED: ALPRAZolam 0.25mg tab ORAL SCH (21:00)
--- NOTE | 2016-12-03 21:53 | Infectious Diseases Prog Note ---
Assessment/Plan Assessment/Plan Full consult to follow: A) 1) uti, sepsis, leukocytosis, fevers 2) ? pna 3) MS 4) pmh noted 5) allergies - asa P) 1) vancomycin and cefepime 2) check uc, labs and f/u chest x-ray 3) thank you Subjective Allergies: Coded Allergies: ASPIRIN (Verified Adverse Reaction, Unknown, GI BLEED, 12/14/10) Objective Vital Signs Last 24 Hour Vital Signs Date Time Temp Pulse Resp B/P Pulse Ox O2 Delivery O2 Flow Rate FiO2 12/03/16 20:00 75 18 98 Room Air 12/03/16 20:00 99.0 78 23 84/44 93 Room Air 12/03/16 19:50 75 18 95 Room Air 12/03/16 16:00 83 12/03/16 15:57 99.1 77 18 88/41 94 Nasal Cannula 2.0 12/03/16 13:00 74 18 94 Nasal Cannula 12/03/16 13:00 74 18 94 Room Air 12/03/16 12:06 98.4 81 18 83/45 94 Nasal Cannula 2.0 12/03/16 12:00 73 12/03/16 08:03 98.6 72 18 113/55 97 Nasal Cannula 2.0 12/03/16 08:00 88 12/03/16 06:55 74 18 94 Nasal Cannula 12/03/16 06:55 74 18 94 Room Air 12/03/16 06:55 74 18 Nasal Cannula 2.0 12/03/16 06:30 70 18 104/52 Nasal Cannula 2.0 12/03/16 05:00 71 19 97/55 Nasal Cannula 2.0 12/03/16 04:00 77 12/03/16 04:00 99.0 68 22 87/43 94 Room Air 12/03/16 01:03 97.5 68 21 110/60 97 Room Air 12/03/16 00:41 97.9 64 12 103/43 98 Room Air 12/03/16 00:15 97.9 64 12 103/43 98 Room Air 12/02/16 22:48 97.9 70 16 79/43 97 Room Air Height (Feet): 6 Height (Inches): 3.00 Weight (Pounds): 136 Microbiology Date/Time Source Procedure Growth Status 12/02/16 19:45 Urine,Clean Catch Urine Culture - Preliminary Resulted Laboratory Tests Test 12/03/16 09:30 White Blood Count 10.5 K/UL (4.8-10.8) Red Blood Count 4.19 M/UL (4.70-6.10) L Hemoglobin 13.1 G/DL (14.2-18.0) L Hematocrit 39.0 % (42.0-52.0) L Mean Corpuscular Volume 93 FL (80-99) Mean Corpuscular Hemoglobin 31.1 PG (27.0-31.0) H Mean Corpuscular Hemoglobin Concent 33.5 G/DL (32.0-36.0) Red Cell Distribution Width 12.9 % (11.6-14.8) Platelet Count 116 K/UL (150-450) L Mean Platelet Volume 7.5 FL (6.5-10.1) Neutrophils (%) (Auto) % (45.0-75.0) Lymphocytes (%) (Auto) % (20.0-45.0) Monocytes (%) (Auto) % (1.0-10.0) Eosinophils (%) (Auto) % (0.0-3.0) Basophils (%) (Auto) % (0.0-2.0) Differential Total Cells Counted 100 Neutrophils % (Manual) 92 % (45-75) H Lymphocytes % (Manual) 4 % (20-45) L Monocytes % (Manual) 4 % (1-10) Eosinophils % (Manual) 0 % (0-3) Basophils % (Manual) 0 % (0-2) Band Neutrophils 0 % (0-8) Platelet Estimate Decreased L Platelet Morphology Normal Red Blood Cell Morphology Normal Sodium Level 140 mEQ/L (135-145) Potassium Level 3.6 mEQ/L (3.4-4.9) Chloride Level 103 mEQ/L (98-107) Carbon Dioxide Level 22 mEQ/L (20-30) Anion Gap 15 (5-15) Blood Urea Nitrogen 18 mg/dL (7-23) Creatinine 0.9 mg/dL (0.7-1.2) Estimat Glomerular Filtration Rate > 60 mL/min (>60) Glucose Level 103 mg/dL (74-106) Calcium Level 8.6 mg/dL (8.6-10.2) Magnesium Level 1.6 mg/dL (1.7-2.5) L Total Bilirubin 0.5 mg/dL (0.0-1.2) Aspartate Amino Transf (AST/SGOT) 13 U/L (5-40) Alanine Aminotransferase (ALT/SGPT) 7 U/L (3-41) Alkaline Phosphatase 64 U/L (40-129) Total Protein 6.1 g/dL (6.6-8.7) L Albumin 3.1 g/dL (3.5-5.2) L Globulin 3.0 g/dL Albumin/Globulin Ratio 1.0 (1.0-2.7) Vitamin B12 Level 316 pg/mL (211-946) Vitamin D 25-Hydroxy Pending 25-Hydroxy Vitamin D2 Pending 25-Hydroxy Vitamin D3 Pending Folate Pending Thyroid Stimulating Hormone (TSH) 0.932 uIU/mL (0.300-4.500) Current Medications Medications (Trade) Dose Ordered Sig/Felicita Route PRN Reason Start Time Stop Time Status Last Admin Dose Admin Acetaminophen (Tylenol) 650 mg Q4H PRN ORAL Mild Pain (Pain Scale 1-3) 12/02/16 23:00 01/01/17 22:59 Acetaminophen (Tylenol) 650 mg Q4H PRN ORAL fever 12/02/16 23:00 01/01/17 22:59 Acetaminophen (Tylenol) 650 mg Q4H PRN RECTAL Mild Pain (Pain Scale 1-3) 12/02/16 23:00 01/01/17 22:59 Acetaminophen (Tylenol) 650 mg Q4H PRN RECTAL fever 12/02/16 23:00 01/01/17 22:59 Albuterol/ Ipratropium (DuoNeb 0.5-3(2.5)mg/3ml) 3 ml Q4H PRN HHN Shortness of Breath 12/02/16 23:00 12/07/16 22:59 Albuterol/ Ipratropium (DuoNeb 0.5-3(2.5)mg/3ml) 3 ml Q6HRT HHN 12/03/16 07:00 12/08/16 06:59 12/03/16 19:50 Alprazolam (Xanax) 0.25 mg BEDTIME ORAL 12/03/16 21:00 12/10/16 20:59 12/03/16 20:50 Ascorbic Acid (Vitamin C) 500 mg TWICE A DAY ORAL 12/03/16 09:00 01/02/17 08:59 12/03/16 18:36 Baclofen 40 mg 40 mg TID ORAL 12/03/16 09:00 01/02/17 08:59 12/03/16 18:36 Bisacodyl (Dulcolax) 10 mg HSPRN PRN RECTAL Constipation 12/02/16 23:00 01/01/17 22:59 Cefepime HCl/ Dextrose (Maxipime/D5W) 55 ml @ 110 mls/hr EVERY 12 HOURS IVPB 12/02/16 23:00 12/09/16 22:59 12/03/16 20:50 Cyanocobalamin 100 mcg 100 mcg DAILY ORAL 12/03/16 09:00 01/02/17 08:59 12/03/16 09:51 Dextrose STAT PRN IV Hypoglycemia 12/02/16 23:00 01/01/17 22:59 Dextrose/Sodium Chloride (D5 0.45% NS) 1,000 ml @ 75 mls/hr [id number] IV 12/03/16 03:30 01/02/17 03:29 12/03/16 17:09 Docusate Sodium (Colace) 100 mg EVERY 12 HOURS ORAL 12/03/16 09:00 01/02/17 08:59 12/03/16 20:50 Heparin Sodium (Porcine) (Heparin 5000 units/ml) 5,000 units EVERY 12 HOURS SUBQ 12/03/16 21:00 01/02/17 20:59 Lorazepam (Ativan 2mg/ml 1ml) 0.5 mg Q4H PRN IV For Anxiety 12/02/16 23:00 12/09/16 22:59 Magnesium Hydroxide (Mom) 30 ml HSPRN PRN ORAL Constipation 12/02/16 23:00 01/01/17 22:59 Ondansetron HCl (Zofran) 4 mg Q6H PRN IVP Nausea & Vomiting 12/02/16 23:00 01/01/17 22:59 Polyethylene Glycol (Miralax) 17 gm HSPRN PRN ORAL Constipation 12/02/16 23:00 01/01/17 22:59 Vancomycin HCl (Vanco rx to dose) 1 ea DAILY PRN MISC Per rx protocol 12/02/16 23:00 01/01/17 22:59 Vancomycin HCl/ Dextrose (Vancomycin/D5W) 325 ml @ 162.5 mls/ hr Q12H IVPB 12/03/16 10:00 12/08/16 09:59 12/03/16 10:00 JOSE CARLOS DORAN Dec 03, 2016 21:53
[2016-12-04] MEDS: DuoNeb 0.5-3(2.5)mg/3ml neb HHN SCH ×4 (01:39→19:00)
[2016-12-04 03:28] VITALS: BP 95/45
[2016-12-04] MEDS: D5 1/2NS 1,000 ML IV SCH (04:04)
--- NOTE | 2016-12-04 04:06 | General Progress Note ---
Assessment/Plan Problem List: (1) Sepsis ICD Codes: A41.9 - Sepsis, unspecified organism SNOMED: 53190752 (2) Hypotension ICD Codes: I95.9 - Hypotension, unspecified SNOMED: 29845604 (3) Acute toxic metabolic encephalopathy (4) UTI (urinary tract infection) ICD Codes: N39.0 - Urinary tract infection SNOMED: 94510147 (5) Multiple sclerosis Assessment & Plan: Advanced MS ICD Codes: G35 - Multiple sclerosis SNOMED: 42889074 (6) Sacral decubitus ulcer Assessment & Plan: Sacral unstageable pressure ulcer ICD Codes: L89.159 - Pressure ulcer of sacral region, unspecified stage SNOMED: 569939585 (7) Right trochanter DTI surrounding skin with full thickness scar issue (8) Right ischial tuberosity DTI pressure ulcer (9) Hypomagnesemia ICD Codes: E83.42 - Hypomagnesemia SNOMED: 634137524 Status: stable Assessment/Plan Sepsis likely 2/2 UTI. Per pulm consult no e/o pneumonia Appreciate pulmonology and ID rec's Cont vanco and cefepime (12/02-) F/u urine cultures F/u blood cultures mIVFs Swallow eval--MECH SOFT(CHOPPED) WITH NECTAR THICK LIQUIDS DIET F/u video swallow PT/OT Cont home meds DVT Prophylaxis: SCD, HSQ Code Status: Full Hospital Classification Declaration: Based on this initial evaluation, and depending on the patient's clinical course, I anticipate that this patient will require hospitalization for 1-2 days for sepsis, UTI, PNA, and close respiratory /hemodynamic monitoring. Disposition: Once the patient is stable to leave the hospital, I anticipate the patient will likely be discharged to the following environment: home with HH + CG vs SNF I spent 70 minutes on this patient's case, and >50% was dedicated to counseling and/or care coordination. Discussed with patient/family, nursing staff, SW/CM, ID, pulm regarding clinical status, treatment course, and disposition planning. D/w ID re abx. D/w pulm re no e/o pneumonia Time of note may not reflect time of encounter. Subjective Date patient seen: Dec 03, 2016 Time patient seen: 12:40 ROS Limited/Unobtainable: No Constitutional: Reports: weakness HEENT: Reports: no symptoms Cardiovascular: Reports: no symptoms Respiratory: Reports: no symptoms Gastrointestinal/Abdominal: Reports: no symptoms Genitourinary: Reports: no symptoms Neurologic/Psychiatric: Reports: no symptoms Endocrine: Reports: no symptoms Hematologic/Lymphatic: Reports: no symptoms Allergies: Coded Allergies: ASPIRIN (Verified Adverse Reaction, Unknown, GI BLEED, 12/14/10) All Systems: reviewed and negative except above Subjective BPs still borderline, SBP 80-90s Tmax 102 in ED, afebrile since WBC improved Pt more awake, alert States appetite improving Denies cough, SOB, pain, f/c, n/v, d/c Objective Last 24 Hour Vital Signs Date Time Temp Pulse Resp B/P Pulse Ox O2 Delivery O2 Flow Rate FiO2 12/04/16 03:28 97.7 67 21 95/45 96 Room Air 12/04/16 01:39 Room Air 12/04/16 01:39 Room Air 12/04/16 00:00 70 12/03/16 23:32 97.7 65 21 84/47 93 Nasal Cannula 12/03/16 20:00 75 18 98 Room Air 12/03/16 20:00 99.0 78 23 84/44 93 Room Air 12/03/16 20:00 76 12/03/16 19:50 75 18 95 Room Air 12/03/16 16:00 83 12/03/16 15:57 99.1 77 18 88/41 94 Nasal Cannula 2.0 12/03/16 13:00 74 18 94 Nasal Cannula 12/03/16 13:00 74 18 94 Room Air 12/03/16 12:06 98.4 81 18 83/45 94 Nasal Cannula 2.0 12/03/16 12:00 73 12/03/16 08:03 98.6 72 18 113/55 97 Nasal Cannula 2.0 12/03/16 08:00 88 12/03/16 06:55 74 18 94 Nasal Cannula 12/03/16 06:55 74 18 94 Room Air 12/03/16 06:55 74 18 Nasal Cannula 2.0 12/03/16 06:30 70 18 104/52 Nasal Cannula 2.0 12/03/16 05:00 71 19 97/55 Nasal Cannula 2.0 12/03/16 04:00 77 12/03/16 04:00 99.0 68 22 87/43 94 Room Air Intake and Output 12/03/16 12/04/16 19:00 07:00 Intake Total 1900.0 ml 860 ml Output Total 1300 ml Balance 600.0 ml 860 ml Intake Oral 420 ml IV Total 1480.0 ml 860 ml Output Urine Total 1300 ml # Bowel Movements 2 1 Laboratory Tests 12/03/16 09:30: White Blood Count 10.5, Red Blood Count 4.19L, Hemoglobin 13.1L, Hematocrit 39.0L, Mean Corpuscular Volume 93, Mean Corpuscular Hemoglobin 31.1H, Mean Corpuscular Hemoglobin Concent 33.5, Red Cell Distribution Width 12.9, Platelet Count 116L, Mean Platelet Volume 7.5, Neutrophils (%) (Auto) , Lymphocytes (%) ( Auto) , Monocytes (%) (Auto) , Eosinophils (%) (Auto) , Basophils (%) (Auto) , Differential Total Cells Counted 100, Neutrophils % (Manual) 92H, Lymphocytes % (Manual) 4L, Monocytes % (Manual) 4, Eosinophils % (Manual) 0, Basophils % ( Manual) 0, Band Neutrophils 0, Platelet Estimate DecreasedL, Platelet Morphology Normal, Red Blood Cell Morphology Normal, Sodium Level 140, Potassium Level 3.6, Chloride Level 103, Carbon Dioxide Level 22, Anion Gap 15, Blood Urea Nitrogen 18, Creatinine 0.9, Estimat Glomerular Filtration Rate > 60 , Glucose Level 103, Calcium Level 8.6, Magnesium Level 1.6L, Total Bilirubin 0.5, Aspartate Amino Transf (AST/SGOT) 13, Alanine Aminotransferase (ALT/SGPT) 7 , Alkaline Phosphatase 64, Total Protein 6.1L, Albumin 3.1L, Globulin 3.0, Albumin/Globulin Ratio 1.0, Vitamin B12 Level 316, Vitamin D 25-Hydroxy [Pending ], 25-Hydroxy Vitamin D2 [Pending], 25-Hydroxy Vitamin D3 [Pending], Folate [ Pending], Thyroid Stimulating Hormone (TSH) 0.932 Height (Feet): 6 Height (Inches): 3.00 Weight (Pounds): 136 Objective General: alert, cooperative, no distress, appears stated age Head: normocephalic, without obvious abnormality, atraumatic Eyes: conjunctivae/corneas clear. PERRL, EOM's intact Throat: lips, mucosa, and tongue normal. MMM Neck: supple, symmetrical, trachea midline, and no JVD Lungs: clear to auscultation bilaterally Heart: regular rate and rhythm, S1, S2 normal, no murmur, click, rub or gallop Abdomen: soft, non-tender, non-distended, bowel sounds normal; no masses or organomegaly : +suprapubic catheter c/d/i Extremities: extremities normal, atraumatic, no cyanosis or edema Pulses: 2+ and symmetric Skin: skin color, texture, turgor normal; no rashes or lesions Neurologic: grossly normal, no focal deficits Ailyn Juan M.D. Dec 04, 2016 04:06
[2016-12-04 08:00] VITALS: BP 102/51
--- NOTE | 2016-12-04 08:00 | Pulmonology Progress Note ---
Assessment/Plan Assessment/Plan ASSESSMENT sepsis UTI acute toxic metabolic encephalopathy ( 2 to sepsis)-resolved MS dehydration hypotension dysphagia s/p catheter sacral decub POA hypo Mg dysphagia PLAN OF CARE O2 HHN prn to keep sat above 92% fup CXR 12/04 - no acute process empiric abx, fup with cx, blood cx preliminary negative swallow eval with evidence of moderate dysphagia diet as per ST recommendation strict aspiration precautions VSS today IVF watch BP closely PT/OT wound care as per wound nurse recommendations DVT prophylaxis bowel regimen Mg replaced, level for thsi am pending transfer to MS floor case discussed and evaluated by supervising physician Subjective Allergies: Coded Allergies: ASPIRIN (Verified Adverse Reaction, Unknown, GI BLEED, 12/14/10) Subjective leukocytosis resolved, afebrile pulse oximetry stable on RA Objective Last 24 Hour Vital Signs Date Time Temp Pulse Resp B/P Pulse Ox O2 Delivery O2 Flow Rate FiO2 12/04/16 07:31 78 16 98 Room Air 12/04/16 07:23 80 16 96 Room Air 12/04/16 04:00 68 12/04/16 03:28 97.7 67 21 95/45 96 Room Air 12/04/16 01:39 Room Air 12/04/16 01:39 Room Air 12/04/16 00:00 70 12/03/16 23:32 97.7 65 21 84/47 93 Nasal Cannula 12/03/16 20:00 75 18 98 Room Air 12/03/16 20:00 99.0 78 23 84/44 93 Room Air 12/03/16 20:00 76 12/03/16 19:50 75 18 95 Room Air 12/03/16 16:00 83 12/03/16 15:57 99.1 77 18 88/41 94 Nasal Cannula 2.0 12/03/16 13:00 74 18 94 Nasal Cannula 12/03/16 13:00 74 18 94 Room Air 12/03/16 12:06 98.4 81 18 83/45 94 Nasal Cannula 2.0 12/03/16 12:00 73 12/03/16 08:03 98.6 72 18 113/55 97 Nasal Cannula 2.0 12/03/16 08:00 88 Intake and Output 12/03/16 12/04/16 19:00 07:00 Intake Total 1900.0 ml 1155 ml Output Total 1300 ml 1100 ml Balance 600.0 ml 55 ml Intake Oral 420 ml IV Total 1480.0 ml 1155 ml Output Urine Total 1300 ml 1100 ml # Bowel Movements 2 1 General Appearance: no acute distress, other - chronically ill looking, bedridden male, awake, alert, responsive HEENT: normocephalic, atraumatic, anicteric Respiratory/Chest: lungs clear, no respiratory distress, no accessory muscle use Cardiovascular: normal peripheral pulses, normal rate, regular rhythm Abdomen: soft, non tender, non distended Extremities: other - spastic LE Neurologic/Psychiatric: abnormal gait - bedridden, alert, responsive Musculoskeletal: atrophy - BLE Microbiology Date/Time Source Procedure Growth Status 12/02/16 19:45 Blood Blood Culture - Preliminary NO GROWTH AFTER 24 HOURS Resulted 12/02/16 19:30 Blood Blood Culture - Preliminary NO GROWTH AFTER 24 HOURS Resulted 12/02/16 19:45 Urine,Clean Catch Urine Culture - Preliminary Resulted Laboratory Tests 12/03/16 09:30: White Blood Count 10.5, Red Blood Count 4.19L, Hemoglobin 13.1L, Hematocrit 39.0L, Mean Corpuscular Volume 93, Mean Corpuscular Hemoglobin 31.1H, Mean Corpuscular Hemoglobin Concent 33.5, Red Cell Distribution Width 12.9, Platelet Count 116L, Mean Platelet Volume 7.5, Neutrophils (%) (Auto) , Lymphocytes (%) ( Auto) , Monocytes (%) (Auto) , Eosinophils (%) (Auto) , Basophils (%) (Auto) , Differential Total Cells Counted 100, Neutrophils % (Manual) 92H, Lymphocytes % (Manual) 4L, Monocytes % (Manual) 4, Eosinophils % (Manual) 0, Basophils % ( Manual) 0, Band Neutrophils 0, Platelet Estimate DecreasedL, Platelet Morphology Normal, Red Blood Cell Morphology Normal, Sodium Level 140, Potassium Level 3.6, Chloride Level 103, Carbon Dioxide Level 22, Anion Gap 15, Blood Urea Nitrogen 18, Creatinine 0.9, Estimat Glomerular Filtration Rate > 60 , Glucose Level 103, Calcium Level 8.6, Magnesium Level 1.6L, Total Bilirubin 0.5, Aspartate Amino Transf (AST/SGOT) 13, Alanine Aminotransferase (ALT/SGPT) 7 , Alkaline Phosphatase 64, Total Protein 6.1L, Albumin 3.1L, Globulin 3.0, Albumin/Globulin Ratio 1.0, Vitamin B12 Level 316, Vitamin D 25-Hydroxy [Pending ], 25-Hydroxy Vitamin D2 [Pending], 25-Hydroxy Vitamin D3 [Pending], Folate [ Pending], Thyroid Stimulating Hormone (TSH) 0.932 Current Medications Medications (Trade) Dose Ordered Sig/Felicita Route PRN Reason Start Time Stop Time Status Last Admin Dose Admin Acetaminophen (Tylenol) 650 mg Q4H PRN ORAL Mild Pain (Pain Scale 1-3) 12/02/16 23:00 01/01/17 22:59 Acetaminophen (Tylenol) 650 mg Q4H PRN ORAL fever 12/02/16 23:00 01/01/17 22:59 Acetaminophen (Tylenol) 650 mg Q4H PRN RECTAL Mild Pain (Pain Scale 1-3) 12/02/16 23:00 01/01/17 22:59 Acetaminophen (Tylenol) 650 mg Q4H PRN RECTAL fever 12/02/16 23:00 01/01/17 22:59 Albuterol/ Ipratropium (DuoNeb 0.5-3(2.5)mg/3ml) 3 ml Q4H PRN HHN Shortness of Breath 12/02/16 23:00 12/07/16 22:59 Albuterol/ Ipratropium (DuoNeb 0.5-3(2.5)mg/3ml) 3 ml Q6HRT HHN 12/03/16 07:00 12/08/16 06:59 12/04/16 07:23 Alprazolam (Xanax) 0.25 mg BEDTIME ORAL 12/03/16 21:00 12/10/16 20:59 12/03/16 20:50 Ascorbic Acid (Vitamin C) 500 mg TWICE A DAY ORAL 12/03/16 09:00 01/02/17 08:59 12/03/16 18:36 Baclofen 40 mg 40 mg TID ORAL 12/03/16 09:00 01/02/17 08:59 12/03/16 18:36 Bisacodyl (Dulcolax) 10 mg HSPRN PRN RECTAL Constipation 12/02/16 23:00 01/01/17 22:59 Cefepime HCl/ Dextrose (Maxipime/D5W) 55 ml @ 110 mls/hr EVERY 12 HOURS IVPB 12/02/16 23:00 12/09/16 22:59 12/03/16 20:50 Cyanocobalamin 100 mcg 100 mcg DAILY ORAL 12/03/16 09:00 01/02/17 08:59 12/03/16 09:51 Dextrose STAT PRN IV Hypoglycemia 12/02/16 23:00 01/01/17 22:59 Dextrose/Sodium Chloride (D5 0.45% NS) 1,000 ml @ 75 mls/hr [id number] IV 12/03/16 03:30 01/02/17 03:29 12/04/16 04:04 Docusate Sodium (Colace) 100 mg EVERY 12 HOURS ORAL 12/03/16 09:00 01/02/17 08:59 12/03/16 20:50 Heparin Sodium (Porcine) (Heparin 5000 units/ml) 5,000 units EVERY 12 HOURS SUBQ 12/03/16 21:00 01/02/17 20:59 Lorazepam (Ativan 2mg/ml 1ml) 0.5 mg Q4H PRN IV For Anxiety 12/02/16 23:00 12/09/16 22:59 Magnesium Hydroxide (Mom) 30 ml HSPRN PRN ORAL Constipation 12/02/16 23:00 01/01/17 22:59 Ondansetron HCl (Zofran) 4 mg Q6H PRN IVP Nausea & Vomiting 12/02/16 23:00 01/01/17 22:59 Polyethylene Glycol (Miralax) 17 gm HSPRN PRN ORAL Constipation 12/02/16 23:00 01/01/17 22:59 Vancomycin HCl (Vanco rx to dose) 1 ea DAILY PRN MISC Per rx protocol 12/02/16 23:00 01/01/17 22:59 Vancomycin HCl/ Dextrose (Vancomycin/D5W) 325 ml @ 162.5 mls/ hr Q12H IVPB 12/03/16 10:00 12/08/16 09:59 12/03/16 22:29 Joanne Flores NP ([facility]) Dec 04, 2016 08:00
[2016-12-04 08:38] LABS: BASOPHILS % (AUTO) 0.5 % (0.0-2.0); EOSINOPHILS % (AUTO) 2.4 % (0.0-3.0); LYMPHOCYTES % (AUTO) 16.1 % (20.0-45.0); MEAN CORPUSCULAR HEMOGLOBIN 31.1 PG (27.0-31.0); MEAN CORPUSCULAR HGB CONC 33.2 G/DL (32.0-36.0); MEAN CORPUSCULAR VOLUME 94 FL (80-99); MEAN PLATELET VOLUME 7.9 FL (6.5-10.1); MONOCYTES % (AUTO) 8.8 % (1.0-10.0); NEUTROPHILS % (AUTO) 72.3 % (45.0-75.0); PLATELET COUNT 109 K/UL (150-450); RED BLOOD COUNT 3.99 M/UL (4.70-6.10); RED CELL DISTRIBUTION WIDTH 13.3 % (11.6-14.8); WHITE BLOOD COUNT 8.5 K/UL (4.8-10.8)
[2016-12-04 08:56] LABS: CALCIUM 8.9 mg/dL (8.6-10.2); CARBON DIOXIDE 25 mEQ/L (20-30); CHLORIDE 104 mEQ/L (98-107); CREATININE 0.9 mg/dL (0.7-1.2); GLOMERULAR FILTRATION RATE > 60 mL/min (>60); HEMOLYSIS 4; MAGNESIUM 2.1 mg/dL (1.7-2.5); SODIUM 142 mEQ/L (135-145)
[2016-12-04] MEDS: Heparin 5000 units/ml inj SUBQ SCH ×2 (09:00→21:00)
[2016-12-04 09:03] LABS: ANION GAP 13 (5-15); POTASSIUM 2.8 mEQ/L (3.4-4.9)
[2016-12-04] MEDS: Cefepime HCl 1 GM in D5W 55 ML IVPB SCH ×2 (09:10→22:24)
[2016-12-04] MEDS: Vitamin B-12 100mcg tab ORAL SCH (09:13)
[2016-12-04] MEDS: Ascorbic Acid 500mg tab ORAL SCH ×2 (09:13→17:46)
[2016-12-04] MEDS: Docusate 100mg cap ORAL SCH ×2 (09:20→21:00)
[2016-12-04] MEDS ORDERED: Tubing IV Secondary IV ONE (10:05)
[2016-12-04] MEDS ORDERED: D5 1/2NS 1000ml IV ONE (10:05)
--- NOTE | 2016-12-04 11:40 | Diagnostic Imaging Report ---
Indication: Dyspnea Technique: One view of the chest Comparison: 12/02/2016 Findings: Patient is rotated to the left. The lungs and pleural spaces are clear. Heart size is normal. No significant change Impression: No acute process
[2016-12-04 12:11] VITALS: BP 109/57
[2016-12-04] MEDS ORDERED: D5 1/2NS 1,000 ML IV SCH (12:15)
[2016-12-04] MEDS ORDERED: Acetaminophen 650 MG SUPP RECTAL PRN ×2 (12:34→15:00)
[2016-12-04] MEDS ORDERED: LORazepam Inj 2mg/ml 1ml IV PRN (12:36)
[2016-12-04] MEDS ORDERED: DuoNeb 0.5-3(2.5)mg/3ml neb HHN PRN (12:36)
[2016-12-04] MEDS ORDERED: Miralax 17gm pkt ORAL PRN (12:37)
[2016-12-04] MEDS ORDERED: Vancomycin 1.5 GM in D5W 325 ML IVPB SCH ×3 (13:00→22:00)
[2016-12-04] MEDS: 1/2NS w/KCl 20mEq 1000ml 1,000 ML IV SCH (13:48)
--- NOTE | 2016-12-04 14:33 | Infectious Diseases Prog Note ---
Assessment/Plan Assessment/Plan Full consult to follow: A) 1) gram neg uti, sepsis, leukocytosis, fevers - improved 2) ? pna - chest x-ray negative x 2 3) MS 4) pmh noted 5) allergies - asa P) 1) cefepime 2) check uc and labs 3) continue treatment per primary 4) will f/u Subjective Constitutional: Denies: fever HEENT: Denies: congestion Respiratory: Denies: shortness of breath Gastrointestinal/Abdominal: Denies: diarrhea, nausea, vomiting Psychiatric: Denies: depression Skin: Denies: rash Allergies: Coded Allergies: ASPIRIN (Verified Adverse Reaction, Unknown, GI BLEED, 12/14/10) Objective Vital Signs Last 24 Hour Vital Signs Date Time Temp Pulse Resp B/P Pulse Ox O2 Delivery O2 Flow Rate FiO2 12/04/16 13:00 Room Air 12/04/16 13:00 Room Air 12/04/16 12:11 97.0 79 17 109/57 97 Room Air 12/04/16 08:00 68 12/04/16 08:00 97.3 75 18 102/51 96 12/04/16 07:31 78 16 98 Room Air 12/04/16 07:23 80 16 96 Room Air 12/04/16 04:00 68 12/04/16 03:28 97.7 67 21 95/45 96 Room Air 12/04/16 01:39 Room Air 12/04/16 01:39 Room Air 12/04/16 00:00 70 12/03/16 23:32 97.7 65 21 84/47 93 Nasal Cannula 12/03/16 20:00 75 18 98 Room Air 12/03/16 20:00 99.0 78 23 84/44 93 Room Air 12/03/16 20:00 76 12/03/16 19:50 75 18 95 Room Air 12/03/16 16:00 83 12/03/16 15:57 99.1 77 18 88/41 94 Nasal Cannula 2.0 Height (Feet): 6 Height (Inches): 3.00 Weight (Pounds): 136 General Appearance: no acute distress HEENT: normocephalic, atraumatic, anicteric, mucous membranes moist Respiratory/Chest: lungs clear, normal breath sounds, no respiratory distress, no accessory muscle use Cardiovascular: normal rate, regular rhythm, no gallop/murmur, no JVD Abdomen: normal bowel sounds, soft, non tender, no organomegaly, non distended Genitourinary: other - + sp cath Microbiology Date/Time Source Procedure Growth Status 12/02/16 19:45 Blood Blood Culture - Preliminary NO GROWTH AFTER 24 HOURS Resulted 12/02/16 19:30 Blood Blood Culture - Preliminary NO GROWTH AFTER 24 HOURS Resulted 12/02/16 19:45 Urine,Clean Catch Urine Culture - Preliminary Gram Negative Bacillus 1 Resulted Laboratory Tests Test 12/04/16 07:50 White Blood Count 8.5 K/UL (4.8-10.8) Red Blood Count 3.99 M/UL (4.70-6.10) L Hemoglobin 12.4 G/DL (14.2-18.0) L Hematocrit 37.4 % (42.0-52.0) L Mean Corpuscular Volume 94 FL (80-99) Mean Corpuscular Hemoglobin 31.1 PG (27.0-31.0) H Mean Corpuscular Hemoglobin Concent 33.2 G/DL (32.0-36.0) Red Cell Distribution Width 13.3 % (11.6-14.8) Platelet Count 109 K/UL (150-450) L Mean Platelet Volume 7.9 FL (6.5-10.1) Neutrophils (%) (Auto) 72.3 % (45.0-75.0) Lymphocytes (%) (Auto) 16.1 % (20.0-45.0) L Monocytes (%) (Auto) 8.8 % (1.0-10.0) Eosinophils (%) (Auto) 2.4 % (0.0-3.0) Basophils (%) (Auto) 0.5 % (0.0-2.0) Sodium Level 142 mEQ/L (135-145) Potassium Level 2.8 mEQ/L (3.4-4.9) L Chloride Level 104 mEQ/L (98-107) Carbon Dioxide Level 25 mEQ/L (20-30) Anion Gap 13 (5-15) Blood Urea Nitrogen 14 mg/dL (7-23) Creatinine 0.9 mg/dL (0.7-1.2) Estimat Glomerular Filtration Rate > 60 mL/min (>60) Glucose Level 116 mg/dL (74-106) H Calcium Level 8.9 mg/dL (8.6-10.2) Phosphorus Level 3.0 mg/dL (2.5-4.8) Magnesium Level 2.1 mg/dL (1.7-2.5) Current Medications Medications (Trade) Dose Ordered Sig/Felicita Route PRN Reason Start Time Stop Time Status Last Admin Dose Admin Acetaminophen (Tylenol) 650 mg Q4H PRN ORAL Mild Pain (Scale 1-3) or fever 12/04/16 12:34 01/03/17 12:33 Acetaminophen (Tylenol) 650 mg Q4H PRN RECTAL Mild Pain (Scale 1-3) or fever 12/04/16 12:34 01/03/17 12:33 Albuterol/ Ipratropium (DuoNeb 0.5-3(2.5)mg/3ml) 3 ml Q4H PRN HHN Shortness of Breath 12/04/16 12:36 12/09/16 12:35 Albuterol/ Ipratropium (DuoNeb 0.5-3(2.5)mg/3ml) 3 ml Q6HRT HHN 12/04/16 13:00 12/09/16 12:59 Alprazolam (Xanax) 0.25 mg BEDTIME ORAL 12/04/16 21:00 12/11/16 20:59 Ascorbic Acid (Vitamin C) 500 mg TWICE A DAY ORAL 12/04/16 18:00 01/03/17 17:59 Baclofen (Lioresal) 40 mg TID ORAL 12/04/16 13:00 01/03/17 12:59 12/04/16 14:17 Bisacodyl (Dulcolax) 10 mg HSPRN PRN RECTAL Constipation 12/04/16 12:35 01/03/17 12:34 Cefepime HCl/ Dextrose (Maxipime/D5W) 55 ml @ 110 mls/hr EVERY 12 HOURS IVPB 12/04/16 21:00 12/11/16 20:59 Cyanocobalamin (Vitamin B-12 Tab) 100 mcg DAILY ORAL 12/05/16 09:00 01/04/17 08:59 Dextrose (Dextrose 50%) STAT PRN IV Hypoglycemia 12/04/16 12:35 01/03/17 12:34 Docusate Sodium (Colace) 100 mg EVERY 12 HOURS ORAL 12/04/16 21:00 01/03/17 20:59 Heparin Sodium (Porcine) (Heparin 5000 units/ml) 5,000 units EVERY 12 HOURS SUBQ 12/04/16 21:00 01/03/17 20:59 Lorazepam (Ativan 2mg/ml 1ml) 0.5 mg Q4H PRN IV For Anxiety 12/04/16 12:36 12/11/16 12:35 Magnesium Hydroxide (Mom) 30 ml HSPRN PRN ORAL Constipation 12/04/16 23:00 01/03/17 22:59 Ondansetron HCl (Zofran) 4 mg Q6H PRN IVP Nausea & Vomiting 12/04/16 12:37 01/03/17 12:36 Polyethylene Glycol (Miralax) 17 gm HSPRN PRN ORAL Constipation 12/04/16 12:37 01/03/17 12:36 Sodium 1,000 ml @ 75 mls/hr [id number] IV 12/04/16 13:00 01/03/17 12:59 12/04/16 13:48 Vancomycin HCl 1 ea 1 ea DAILY PRN MISC Per rx protocol 12/04/16 12:37 01/03/17 12:36 Vancomycin HCl/ Dextrose (Vancomycin/D5W) 325 ml @ 162.5 mls/ hr Q12HR@0200,1400 IVPB 12/04/16 14:00 12/09/16 13:59 12/04/16 13:49 JOSE CARLOS DORAN Dec 04, 2016 14:33
[2016-12-04 16:08] VITALS: BP 87/52
--- NOTE | 2016-12-04 18:50 | Cardiology Report ---
APPROVED REPORT EKG Measurement Heart [id number] Normal sinus rhythm Left axis deviation Septal infarct, age undetermined Abnormal ECG
[2016-12-04 20:00] VITALS: BP 89/56
[2016-12-04] MEDS: ALPRAZolam 0.25mg tab ORAL SCH (21:07)
--- NOTE | 2016-12-04 22:34 | General Progress Note ---
Assessment/Plan Problem List: (1) Sepsis ICD Codes: A41.9 - Sepsis, unspecified organism SNOMED: 74896929 (2) Hypotension ICD Codes: I95.9 - Hypotension, unspecified SNOMED: 54330577 (3) Acute toxic metabolic encephalopathy (4) UTI (urinary tract infection) ICD Codes: N39.0 - Urinary tract infection SNOMED: 81332030 (5) Multiple sclerosis Assessment & Plan: Advanced MS ICD Codes: G35 - Multiple sclerosis SNOMED: 71874795 (6) Sacral decubitus ulcer Assessment & Plan: Sacral unstageable pressure ulcer ICD Codes: L89.159 - Pressure ulcer of sacral region, unspecified stage SNOMED: 840061271 (7) Right trochanter DTI surrounding skin with full thickness scar issue (8) Right ischial tuberosity DTI pressure ulcer (9) Hypomagnesemia ICD Codes: E83.42 - Hypomagnesemia SNOMED: 882841407 Status: stable Assessment/Plan Sepsis likely 2/2 UTI. Per pulm consult no e/o pneumonia Appreciate pulmonology and ID rec's Cont cefepime (12/02-) s/p vanco (12/02-12/04) F/u urine culture-->100K GNR F/u blood cultures mIVFs Swallow eval F/u video swallow --> failed but pt wants to cont w/ PO PT/OT Cont home meds DVT Prophylaxis: SCD, HSQ Code Status: Full Hospital Classification Declaration: Based on this initial evaluation, and depending on the patient's clinical course, I anticipate that this patient will require hospitalization for 1-2 days for sepsis, UTI, PNA, and close respiratory /hemodynamic monitoring. Disposition: Once the patient is stable to leave the hospital, I anticipate the patient will likely be discharged to the following environment: home with HH + CG vs SNF I spent 40 minutes on this patient's case, and >50% was dedicated to counseling and/or care coordination. Discussed with patient/family, nursing staff, SW/CM, ID, pulm regarding clinical status, treatment course, and disposition planning. D/w ID re abx. D/w pulm re no e/o pneumonia Time of note may not reflect time of encounter. Subjective Date patient seen: Dec 04, 2016 Time patient seen: 15:00 ROS Limited/Unobtainable: No Constitutional: Reports: weakness HEENT: Reports: no symptoms Cardiovascular: Reports: no symptoms Respiratory: Reports: no symptoms Gastrointestinal/Abdominal: Reports: no symptoms Genitourinary: Reports: no symptoms Neurologic/Psychiatric: Reports: no symptoms Endocrine: Reports: no symptoms Hematologic/Lymphatic: Reports: no symptoms Allergies: Coded Allergies: ASPIRIN (Verified Adverse Reaction, Unknown, GI BLEED, 12/14/10) Subjective Afebrile WBC down to 8.5K Pt more awake, alert States appetite improving Denies cough, SOB, pain, f/c, n/v, d/c Failed video swallow - discussed with patient who states he would rather than not be able to eat PO Objective Last 24 Hour Vital Signs Date Time Temp Pulse Resp B/P Pulse Ox O2 Delivery O2 Flow Rate FiO2 12/04/16 20:00 97.7 71 20 89/56 98 Room Air 12/04/16 19:33 Room Air 12/04/16 19:32 Room Air 12/04/16 16:08 97.9 68 20 87/52 93 Room Air 12/04/16 13:00 Room Air 12/04/16 13:00 Room Air 12/04/16 12:11 97.0 79 17 109/57 97 Room Air 12/04/16 08:00 68 12/04/16 08:00 97.3 75 18 102/51 96 12/04/16 07:31 78 16 98 Room Air 12/04/16 07:23 80 16 96 Room Air 12/04/16 04:00 68 12/04/16 03:28 97.7 67 21 95/45 96 Room Air 12/04/16 01:39 Room Air 12/04/16 01:39 Room Air 12/04/16 00:00 70 12/03/16 23:32 97.7 65 21 84/47 93 Nasal Cannula Intake and Output 12/03/16 12/04/16 19:00 07:00 Intake Total 1900.0 ml 1155 ml Output Total 1300 ml 1100 ml Balance 600.0 ml 55 ml Intake Oral 420 ml IV Total 1480.0 ml 1155 ml Output Urine Total 1300 ml 1100 ml # Bowel Movements 2 1 Laboratory Tests 12/04/16 07:50: White Blood Count 8.5, Red Blood Count 3.99L, Hemoglobin 12.4L, Hematocrit 37.4L , Mean Corpuscular Volume 94, Mean Corpuscular Hemoglobin 31.1H, Mean Corpuscular Hemoglobin Concent 33.2, Red Cell Distribution Width 13.3, Platelet Count 109L, Mean Platelet Volume 7.9, Neutrophils (%) (Auto) 72.3, Lymphocytes ( %) (Auto) 16.1L, Monocytes (%) (Auto) 8.8, Eosinophils (%) (Auto) 2.4, Basophils (%) (Auto) 0.5, Sodium Level 142, Potassium Level 2.8L, Chloride Level 104, Carbon Dioxide Level 25, Anion Gap 13, Blood Urea Nitrogen 14, Creatinine 0.9, Estimat Glomerular Filtration Rate > 60, Glucose Level 116H, Calcium Level 8.9, Phosphorus Level 3.0, Magnesium Level 2.1 Height (Feet): 6 Height (Inches): 3.00 Weight (Pounds): 136 Objective General: alert, cooperative, no distress, appears stated age Head: normocephalic, without obvious abnormality, atraumatic Eyes: conjunctivae/corneas clear. PERRL, EOM's intact Throat: lips, mucosa, and tongue normal. MMM Neck: supple, symmetrical, trachea midline, and no JVD Lungs: clear to auscultation bilaterally Heart: regular rate and rhythm, S1, S2 normal, no murmur, click, rub or gallop Abdomen: soft, non-tender, non-distended, bowel sounds normal; no masses or organomegaly : +suprapubic catheter c/d/i Extremities: extremities normal, atraumatic, no cyanosis or edema Pulses: 2+ and symmetric Skin: skin color, texture, turgor normal; no rashes or lesions Neurologic: grossly normal, no focal deficits Ailyn Juan M.D. Dec 04, 2016 22:33
[2016-12-04] MEDS ORDERED: Milk of Magnesia 30ml Ud ORAL PRN (23:00)
--- NOTE | 2016-12-04 23:02 | Consultation ---
DATE OF CONSULTATION: 12/04/2016 INFECTIOUS DISEASE CONSULTATION CONSULTING PHYSICIAN: Mariza Santos M.D. ATTENDING PHYSICIAN: Terrie Tijerina M.D. REASON FOR CONSULTATION: Gram-negative urinary tract infection, sepsis, fever, and leukocytosis. CHIEF COMPLAINT: The patient's chief complaint coming to the hospital is congestion and possible pneumonia. HISTORY OF PRESENT ILLNESS: This is a very pleasant 66-year-old male with history of multiple sclerosis who comes into [facility] because of congestion. It was noted that he had fevers and elevated white count. Workup showed that his chest x-ray is negative and he had fever, leukocytosis, and likely sepsis. The patient has a gram-negative UTI likely with sepsis syndrome and pyelonephritis. An Infectious Disease consultation was requested for antibiotic management. The patient is on cefepime at this time. Final urine culture is pending. Case was discussed Dr. Camacho. MAR was noted. Orders were noted. Notes and records were reviewed. PAST MEDICAL HISTORY: The patient has a past medical history of multiple sclerosis, generalized weakness, history of UTI, he has history of suprapubic catheter. He has wounds. He has a history of contractures, history of spasticity, history of bladder dystonia, history of altered mental status, encephalopathy. MEDICATIONS: Upon reviewing the MAR, he is on the following medications: He is on cyanocobalamin, which is vitamin B. He is on magnesium hydroxide, cefepime, Xanax, and Colace. He is on vancomycin, which I will discontinue. He is on heparin. He is on baclofen and albuterol. He is on IV fluids and polyethylene. He is on lorazepam, albuterol treatment, bisacodyl, acetaminophen. Please see medications in medical record. ALLERGIES: Aspirin. FAMILY HISTORY: Noncontributory. SOCIAL HISTORY: Negative for smoking, alcohol, or drug abuse. REVIEW OF SYSTEMS: Pulmonary: No significant congestion or shortness of breath. Head And Neck: No head pain. No neck pain. He has generalized weakness. He came in with fevers and chills. No thrush, dysphagia, or sinus tenderness. Cardiac: No chest pain or palpitation. No pressors. Gastrointestinal: No nausea, vomiting, or diarrhea. Genitourinary: He has a suprapubic catheter. Skin: No new rash. Wounds were noted. Neurologic: No seizures. Generalized weakness. PHYSICAL EXAMINATION: VITAL SIGNS: Temperature 99.0 degrees, pulse rate 79, respiratory rate 17, blood pressure 100/57, and O2 saturation 97%. Respiratory rate was as high as 22. GENERAL: The patient is alert, generalized weakness, now he came in with altered mental status per the records, but is alert and responsive now. HEAD AND NECK: Oral exam, no thrush. Eye exam, no icterus. Normocephalic. No facial droop. No neck stiffness. HEART: Regular. No gallop. No murmur or friction rub. LUNGS: Clear bilaterally. No rhonchi or rales. ABDOMEN: Soft. Positive bowel sounds. Nontender. SKIN: No rash or dermatitis. MUSCULOSKELETAL: No effusion. He has contractures. Legs are without cellulitis. PERIPHERAL VASCULAR: No cyanosis or gangrene. He has wounds that are clean. No evidence of infected wounds. RECTAL: Deferred. GENITOURINARY: He has suprapubic catheter. Urine is cloudy. LINES: Line sites without phlebitis. NEUROLOGIC: Awake and responsive. LABORATORY DATA: Laboratory data is as follows. White count 8.5 and hemoglobin 12.4. White count has been high as 13.9. Creatinine is 0.9. Blood cultures are negative. Urine culture grew out greater than 100,000 gram-negative organisms. Chest x-ray is negative. Urinalysis, 2+ leukocyte esterase, 5 to 10 white blood cells, and many bacteria. Chest x-ray is negative x2. White count is high at 13.9 and now is 8.5, hemoglobin 12.4. Creatinine is 0.9. ASSESSMENT: 1. The patient has gram-negative urinary tract infection, pyelonephritis, sepsis, elevated white count, fevers, systemic inflammatory response syndrome criteria, altered mental status, likely septic syndrome. Continue cefepime for gram-negative urinary tract infection and sepsis. Check urine culture. 2. Chest x-ray is negative for pneumonia, likely upper respiratory infection, bronchitis. Continue cefepime. Discontinue vancomycin. 3. Multiple sclerosis and weakness. 4. The patient is anemic. 5. Skin care protocol. 6. History of urinary tract infection. 7. Suprapubic catheter. 8. . 9. Bladder dystonia. 10. Contractures. 11. Allergies to aspirin. 12. Family history is noncontributory. 13. MAR was noted. 14. Case was discussed with RN. 15. Notes were reviewed. 16. Continue treatment per per primary consultants. 17. Family and social history negative. 18. Skin care protocol. Mariza Santos M.D. DR: ZOHREH JOB#: [id number] CC:
[2016-12-05] VITALS: BP 108/64
[2016-12-05] MEDS: DuoNeb 0.5-3(2.5)mg/3ml neb HHN SCH ×4 (01:00→19:25)
[2016-12-05] MEDS: 1/2NS w/KCl 20mEq 1000ml 1,000 ML IV SCH ×2 (02:15→16:00)
[2016-12-05 04:00] VITALS: BP 96/58
[2016-12-05 08:00] VITALS: BP 105/69
[2016-12-05] MEDS: Heparin 5000 units/ml inj SUBQ SCH ×2 (09:00→20:36)
[2016-12-05] MEDS: Vitamin B-12 100mcg tab ORAL SCH (09:00)
[2016-12-05] MEDS: Docusate 100mg cap ORAL SCH ×2 (09:00→20:36)
[2016-12-05] MEDS: Cefepime HCl 1 GM in D5W 55 ML IVPB SCH ×2 (09:06→20:38)
[2016-12-05] MEDS: Ascorbic Acid 500mg tab ORAL SCH ×2 (09:06→18:39)
[2016-12-05 10:13] LABS: ANION GAP 14 (5-15); CALCIUM 8.9 mg/dL (8.6-10.2); CARBON DIOXIDE 22 mEQ/L (20-30); CHLORIDE 107 mEQ/L (98-107); CREATININE 0.8 mg/dL (0.7-1.2); GLOMERULAR FILTRATION RATE > 60 mL/min (>60); HEMOLYSIS 8; PHOSPHORUS 3.2 mg/dL (2.5-4.8); POTASSIUM 3.9 mEQ/L (3.4-4.9); SODIUM 143 mEQ/L (135-145)
[2016-12-05 10:23] LABS: FERRITIN 588 ng/mL (10-230)
[2016-12-05] MEDS ORDERED: Tubing IV Secondary IV ONE (11:19)
[2016-12-05] MEDS ORDERED: NS 275ml ONE (11:19)
[2016-12-05 12:00] VITALS: BP 105/65
--- NOTE | 2016-12-05 12:22 | Pulmonology Progress Note ---
Assessment/Plan Assessment/Plan ASSESSMENT sepsis UTI with Proteus acute toxic metabolic encephalopathy ( 2 to sepsis)-resolved MS dehydration hypotension dysphagia s/p catheter sacral decub unstageable POA hypo Mg dysphagia PLAN OF CARE MS floor O2 HHN prn to keep sat above 92% fup CXR 12/04 - no acute process abx, blood cx preliminary negative , urine cx + Proteus swallow eval with evidence of moderate dysphagia diet as per ST recommendation strict aspiration precautions VSS IVF watch BP closely PT/OT wound care as per wound nurse recommendations DVT prophylaxis bowel regimen Mg stable after replacement case discussed and evaluated by supervising physician Subjective Allergies: Coded Allergies: ASPIRIN (Verified Adverse Reaction, Unknown, GI BLEED, 12/14/10) Subjective leukocytosis resolved, afebrile pulse oximetry stable on RA Objective Last 24 Hour Vital Signs Date Time Temp Pulse Resp B/P Pulse Ox O2 Delivery O2 Flow Rate FiO2 12/05/16 08:00 96.8 70 20 105/69 96 Room Air 12/05/16 07:39 70 16 99 Room Air 12/05/16 07:31 67 18 99 Room Air 12/05/16 04:00 97.7 69 20 96/58 96 Room Air 12/05/16 01:22 Room Air 12/05/16 00:00 98.0 63 20 108/64 91 Room Air 12/04/16 20:00 97.7 71 20 89/56 98 Room Air 12/04/16 19:33 Room Air 12/04/16 19:32 Room Air 12/04/16 16:08 97.9 68 20 87/52 93 Room Air 12/04/16 13:00 Room Air 12/04/16 13:00 Room Air Intake and Output 12/04/16 12/05/16 19:00 07:00 Intake Total 1285.0 ml 1240 ml Output Total 2000 ml 1900 ml Balance -715.0 ml -660 ml Intake Oral 360 ml 360 ml IV Total 925.0 ml 880 ml Output Urine Total 2000 ml 1900 ml # Bowel Movements 2 5 Objective General Appearance: no acute distress, chronically ill looking, bedridden male, awake, alert, responsive HEENT: normocephalic, atraumatic, anicteric Respiratory/Chest: lungs clear, no respiratory distress, no accessory muscle use Cardiovascular: normal peripheral pulses, normal rate, regular rhythm Abdomen: soft, non tender, non distended Extremities: spastic LE Neurologic/Psychiatric: abnormal gait / bedridden, alert, responsive Musculoskeletal: atrophy - BLE Microbiology Date/Time Source Procedure Growth Status 12/02/16 19:45 Blood Blood Culture - Preliminary NO GROWTH AFTER 48 HOURS Resulted 12/02/16 19:30 Blood Blood Culture - Preliminary NO GROWTH AFTER 48 HOURS Resulted 12/03/16 21:49 Sputum Expectorated Gram Stain - Final Resulted 12/03/16 21:49 Sputum Expectorated Sputum Culture Pending Resulted 12/02/16 19:45 Urine,Clean Catch Urine Culture - Final Proteus Mirabilis Complete Laboratory Tests 12/05/16 01:00: Sodium Level 143, Potassium Level 3.9, Chloride Level 107, Carbon Dioxide Level 22, Anion Gap 14, Blood Urea Nitrogen 12, Creatinine 0.8, Estimat Glomerular Filtration Rate > 60, Glucose Level 113H, Calcium Level 8.9, Phosphorus Level 3.2, Magnesium Level 2.0, Ferritin 588H, Vancomycin Level Trough 30.3H Current Medications Medications (Trade) Dose Ordered Sig/Felicita Route PRN Reason Start Time Stop Time Status Last Admin Dose Admin Acetaminophen (Tylenol) 650 mg Q4H PRN ORAL Mild Pain (Scale 1-3) or fever 12/04/16 12:34 01/03/17 12:33 Acetaminophen (Tylenol) 650 mg Q4H PRN RECTAL Mild Pain (Scale 1-3) or fever 12/04/16 12:34 01/03/17 12:33 Albuterol/ Ipratropium (DuoNeb 0.5-3(2.5)mg/3ml) 3 ml Q4H PRN HHN Shortness of Breath 12/04/16 12:36 12/09/16 12:35 Albuterol/ Ipratropium (DuoNeb 0.5-3(2.5)mg/3ml) 3 ml Q6HRT HHN 12/04/16 13:00 12/09/16 12:59 12/05/16 07:31 Alprazolam (Xanax) 0.25 mg BEDTIME ORAL 12/04/16 21:00 12/11/16 20:59 12/04/16 21:07 Ascorbic Acid (Vitamin C) 500 mg TWICE A DAY ORAL 12/04/16 18:00 01/03/17 17:59 7/1/17 09:06 Baclofen (Lioresal) 40 mg TID ORAL 12/04/16 13:00 01/03/17 12:59 12/05/16 09:07 Bisacodyl (Dulcolax) 10 mg HSPRN PRN RECTAL Constipation 12/04/16 12:35 01/03/17 12:34 Cefepime HCl/ Dextrose (Maxipime/D5W) 55 ml @ 110 mls/hr EVERY 12 HOURS IVPB 12/04/16 21:00 12/11/16 20:59 12/05/16 09:06 Cyanocobalamin (Vitamin B-12 Tab) 100 mcg DAILY ORAL 12/05/16 09:00 01/04/17 08:59 12/05/16 09:00 Dextrose (Dextrose 50%) STAT PRN IV Hypoglycemia 12/04/16 12:35 01/03/17 12:34 Docusate Sodium (Colace) 100 mg EVERY 12 HOURS ORAL 12/04/16 21:00 01/03/17 20:59 Heparin Sodium (Porcine) (Heparin 5000 units/ml) 5,000 units EVERY 12 HOURS SUBQ 12/04/16 21:00 01/03/17 20:59 Lorazepam (Ativan 2mg/ml 1ml) 0.5 mg Q4H PRN IV For Anxiety 12/04/16 12:36 12/11/16 12:35 Magnesium Hydroxide (Mom) 30 ml HSPRN PRN ORAL Constipation 12/04/16 23:00 01/03/17 22:59 Ondansetron HCl (Zofran) 4 mg Q6H PRN IVP Nausea & Vomiting 12/04/16 12:37 01/03/17 12:36 Polyethylene Glycol (Miralax) 17 gm HSPRN PRN ORAL Constipation 12/04/16 12:37 01/03/17 12:36 Sodium (0.45%NS w/KCl 20mEq 1000ml) 1,000 ml @ 75 mls/hr [id number] IV 12/04/16 13:00 01/03/17 12:59 12/05/16 02:15 Vancomycin HCl 1 ea 1 ea DAILY PRN MISC Per rx protocol 12/04/16 12:37 01/03/17 12:36 Mark Miller)Joanne NP 1, 2017 12:22
--- NOTE | 2016-12-05 13:51 | General Progress Note ---
Assessment/Plan Problem List: (1) Sepsis ICD Codes: A41.9 - Sepsis, unspecified organism SNOMED: 83782671 (2) Hypotension ICD Codes: I95.9 - Hypotension, unspecified SNOMED: 88803191 (3) Acute toxic metabolic encephalopathy (4) UTI (urinary tract infection) ICD Codes: N39.0 - Urinary tract infection SNOMED: 28516968 (5) Multiple sclerosis Assessment & Plan: Advanced MS ICD Codes: G35 - Multiple sclerosis SNOMED: 71085205 (6) Sacral decubitus ulcer Assessment & Plan: Sacral unstageable pressure ulcer ICD Codes: L89.159 - Pressure ulcer of sacral region, unspecified stage SNOMED: 038810860 Qualifiers: Qualified Codes: L89.154 - Pressure ulcer of sacral region, stage 4 (7) Right trochanter DTI surrounding skin with full thickness scar issue (8) Right ischial tuberosity DTI pressure ulcer (9) Hypomagnesemia ICD Codes: E83.42 - Hypomagnesemia SNOMED: 267188229 Status: stable Assessment/Plan Sepsis likely 2/2 UTI. Per pulm consult no e/o pneumonia Appreciate pulmonology and ID rec's Cont cefepime (12/02-) s/p vanco (12/02-12/04) F/u urine culture-->100K Proteus F/u blood cultures mIVFs Swallow eval F/u video swallow --> failed but pt wants to cont w/ PO and he understands the risks involved PT/OT Cont home meds DVT Prophylaxis: SCD, HSQ Code Status: DNR/DNI Hospital Classification Declaration: Based on this initial evaluation, and depending on the patient's clinical course, I anticipate that this patient will require hospitalization for 1-2 days for sepsis, UTI, PNA, and close respiratory /hemodynamic monitoring. Disposition: Once the patient is stable to leave the hospital, I anticipate the patient will likely be discharged to the following environment: home with HH + CG vs SNF I spent 38 minutes on this patient's case, and >50% was dedicated to counseling and/or care coordination. Discussed with patient/family, nursing staff, SW/CM, ID, pulm regarding clinical status, treatment course, and disposition planning. D/w ID re abx Time of note may not reflect time of encounter. Subjective Date patient seen: Dec 05, 2016 Time patient seen: 13:51 ROS Limited/Unobtainable: No Allergies: Coded Allergies: ASPIRIN (Verified Adverse Reaction, Unknown, GI BLEED, 12/14/10) Subjective Afebrile Leukocytosis resolved K improved Pt more awake, alert States appetite improving Denies cough, SOB, pain, f/c, n/v, d/c Failed video swallow - discussed with patient who states he would rather than not be able to eat PO. D/w pt's Objective Last 24 Hour Vital Signs Date Time Temp Pulse Resp B/P Pulse Ox O2 Delivery O2 Flow Rate FiO2 12/05/16 12:00 96.5 70 20 105/65 96 Room Air 12/05/16 08:00 96.8 70 20 105/69 96 Room Air 12/05/16 07:39 70 16 99 Room Air 12/05/16 07:31 67 18 99 Room Air 12/05/16 04:00 97.7 69 20 96/58 96 Room Air 12/05/16 01:22 Room Air 12/05/16 00:00 98.0 63 20 108/64 91 Room Air 12/04/16 20:00 97.7 71 20 89/56 98 Room Air 12/04/16 19:33 Room Air 12/04/16 19:32 Room Air 12/04/16 16:08 97.9 68 20 87/52 93 Room Air Intake and Output 12/04/16 12/05/16 19:00 07:00 Intake Total 1285.0 ml 1240 ml Output Total 2000 ml 1900 ml Balance -715.0 ml -660 ml Intake Oral 360 ml 360 ml IV Total 925.0 ml 880 ml Output Urine Total 2000 ml 1900 ml # Bowel Movements 2 5 Laboratory Tests 12/05/16 01:00: Sodium Level 143, Potassium Level 3.9, Chloride Level 107, Carbon Dioxide Level 22, Anion Gap 14, Blood Urea Nitrogen 12, Creatinine 0.8, Estimat Glomerular Filtration Rate > 60, Glucose Level 113H, Calcium Level 8.9, Phosphorus Level 3.2, Magnesium Level 2.0, Ferritin 588H, Vancomycin Level Trough 30.3H Height (Feet): 6 Height (Inches): 3.00 Weight (Pounds): 136 Objective General: alert, cooperative, no distress, appears stated age Head: normocephalic, without obvious abnormality, atraumatic Eyes: conjunctivae/corneas clear. PERRL, EOM's intact Throat: lips, mucosa, and tongue normal. MMM Neck: supple, symmetrical, trachea midline, and no JVD Lungs: clear to auscultation bilaterally Heart: regular rate and rhythm, S1, S2 normal, no murmur, click, rub or gallop Abdomen: soft, non-tender, non-distended, bowel sounds normal; no masses or organomegaly : +suprapubic catheter c/d/i Extremities: extremities normal, atraumatic, no cyanosis or edema Pulses: 2+ and symmetric Skin: skin color, texture, turgor normal; no rashes or lesions Neurologic: grossly normal, no focal deficits Ailyn Juan M.D. Dec 05, 2016 13:51
[2016-12-05 16:00] VITALS: BP 90/52
[2016-12-05 20:12] VITALS: BP 103/64
[2016-12-05] MEDS: ALPRAZolam 0.25mg tab ORAL SCH (20:38)
[2016-12-05] MEDS ORDERED: D5 1/2NS 1000ml IV ONE (22:26)
[2016-12-06 00:04] VITALS: BP 113/71
[2016-12-06] MEDS: DuoNeb 0.5-3(2.5)mg/3ml neb HHN SCH ×4 (01:08→19:15)
[2016-12-06] MEDS ORDERED: Vancomycin 1gm/D5W 275ml IVPB SCH ×2 (04:00)
[2016-12-06 04:17] VITALS: BP 114/73
[2016-12-06] MEDS ORDERED: Vancomycin 1gm inj IVPB ONE (04:52)
[2016-12-06] MEDS: 1/2NS w/KCl 20mEq 1000ml 1,000 ML IV SCH ×2 (05:05→17:59)
[2016-12-06 08:10] VITALS: BP 106/66
[2016-12-06] MEDS: Docusate 100mg cap ORAL SCH ×2 (09:00→20:08)
[2016-12-06] MEDS: Heparin 5000 units/ml inj SUBQ SCH ×2 (09:00→20:16)
[2016-12-06] MEDS: Vitamin B-12 100mcg tab ORAL SCH (09:19)
[2016-12-06] MEDS: Ascorbic Acid 500mg tab ORAL SCH ×2 (09:19→17:58)
[2016-12-06] MEDS: Cefepime HCl 1 GM in D5W 55 ML IVPB SCH (09:21)
[2016-12-06 11:40] LABS: BASOPHILS % (AUTO) 0.4 % (0.0-2.0); EOSINOPHILS % (AUTO) 4.8 % (0.0-3.0); LYMPHOCYTES % (AUTO) 16.5 % (20.0-45.0); MEAN CORPUSCULAR HEMOGLOBIN 30.5 PG (27.0-31.0); MEAN CORPUSCULAR HGB CONC 32.5 G/DL (32.0-36.0); MEAN CORPUSCULAR VOLUME 94 FL (80-99); MEAN PLATELET VOLUME 6.4 FL (6.5-10.1); MONOCYTES % (AUTO) 8.2 % (1.0-10.0); PLATELET COUNT 137 K/UL (150-450); RED BLOOD COUNT 4.19 M/UL (4.70-6.10); RED CELL DISTRIBUTION WIDTH 13.1 % (11.6-14.8)
[2016-12-06 11:54] LABS: ANION GAP 12 (5-15); CARBON DIOXIDE 27 mEQ/L (20-30); CHLORIDE 104 mEQ/L (98-107); CREATININE 0.8 mg/dL (0.7-1.2); GLOMERULAR FILTRATION RATE > 60 mL/min (>60); HEMOLYSIS 1; MAGNESIUM 1.9 mg/dL (1.7-2.5); SODIUM 143 mEQ/L (135-145)
[2016-12-06 12:00] VITALS: BP 103/57
--- NOTE | 2016-12-06 12:01 | Infectious Diseases Prog Note ---
Assessment/Plan Assessment/Plan ASSESSMENT: 1. proteus uti/pyelonephritis, sepsis, leukocytosis, fever - clinically better - change abx to ceftriaxone only, discontinue vancomycin and cefepime - sepsis improved - can change to po ciprofloxacin upon discharge for 7 days - d/w Dr. Robertson about patient care and abx 2. Chest x-ray is negative for pneumonia, likely upper respiratory infection, bronchitis. Sputum culture Continue rocephin. 3. Multiple sclerosis and weakness. 4. The patient is anemic. 5. Skin care protocol. 6. History of urinary tract infection. 7. Suprapubic catheter. 8. spasticity 9. Bladder dystonia. 10. Contractures. 11. Allergies to aspirin. 12. Family history is noncontributory. 13. MAR was noted. 14. Case was discussed with RN. 15. Notes were reviewed. 16. Continue treatment per per primary consultants. 17. Family and social history negative. 18. Skin care protocol. Subjective Constitutional: Denies: fever HEENT: Denies: congestion Respiratory: Denies: shortness of breath Cardiovascular: Denies: chest pain Gastrointestinal/Abdominal: Reports: other, Denies: diarrhea, nausea, vomiting Genitourinary: Reports: other - no salvador Neurologic: Denies: headache Psychiatric: Denies: depression Skin: Denies: rash Hematologic: Denies: bleeding Musculoskeletal: Denies: pain Allergies: Coded Allergies: ASPIRIN (Verified Adverse Reaction, Unknown, GI BLEED, 12/14/10) Objective Vital Signs Last 24 Hour Vital Signs Date Time Temp Pulse Resp B/P Pulse Ox O2 Delivery O2 Flow Rate FiO2 12/06/16 09:10 78 20 99 Room Air 12/06/16 08:59 87 18 99 Room Air 21 12/06/16 08:10 97.3 75 18 106/66 98 Room Air 12/06/16 04:17 98.3 78 18 114/73 96 Room Air 12/06/16 01:15 63 18 100 Room Air 12/06/16 01:09 62 18 96 Room Air 12/06/16 00:04 97.6 64 20 113/71 98 Room Air 12/05/16 20:12 98.1 66 20 103/64 96 Room Air 12/05/16 19:31 72 18 100 Room Air 12/05/16 19:26 67 16 97 Room Air 12/05/16 16:00 96.0 66 18 90/52 97 Room Air 12/05/16 13:38 69 18 99 Room Air 12/05/16 13:29 68 16 99 Room Air 12/05/16 12:00 96.5 70 20 105/65 96 Room Air Height (Feet): 6 Height (Inches): 3.00 Weight (Pounds): 136 General Appearance: no acute distress HEENT: normocephalic, atraumatic, anicteric, mucous membranes moist, PERRL, EOMI, pharynx normal, supple, no JVD Respiratory/Chest: lungs clear, normal breath sounds, no respiratory distress, no accessory muscle use Cardiovascular: normal rate, regular rhythm, no gallop/murmur, no JVD Abdomen: normal bowel sounds, soft, non tender, no organomegaly, non distended Genitourinary: other - + salvador - urine cloudy Extremities: no cyanosis Skin: no rash 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, alert, oriented x 3 Lymphatic: no neck adenopathy Musculoskeletal: no effusion Objective chest x-ray - 12/04 - nad, no pna (noted) Microbiology Date/Time Source Procedure Growth Status 12/03/16 21:49 Sputum Expectorated Gram Stain - Final Complete 12/03/16 21:49 Sputum Expectorated Sputum Culture - Final NORMAL UPPER RESPIRATORY SALMA PRESENT Complete Microbiology Date/Time Source Procedure Growth Status 12/02/16 19:45 Blood Blood Culture - Preliminary NO GROWTH AFTER 72 HOURS Resulted 12/03/16 21:49 Sputum Expectorated Gram Stain - Final Complete 12/03/16 21:49 Sputum Expectorated Sputum Culture - Final NORMAL UPPER RESPIRATORY SALMA PRESENT Complete 12/02/16 19:45 Urine,Clean Catch Urine Culture - Final Proteus Mirabilis Complete Laboratory Tests Test 12/06/16 01:00 12/06/16 05:50 Random Vancomycin Level 13.2 ug/mL White Blood Count 6.0 K/UL (4.8-10.8) Red Blood Count 4.19 M/UL (4.70-6.10) L Hemoglobin 12.8 G/DL (14.2-18.0) L Hematocrit 39.3 % (42.0-52.0) L Mean Corpuscular Volume 94 FL (80-99) Mean Corpuscular Hemoglobin 30.5 PG (27.0-31.0) Mean Corpuscular Hemoglobin Concent 32.5 G/DL (32.0-36.0) Red Cell Distribution Width 13.1 % (11.6-14.8) Platelet Count 137 K/UL (150-450) L Mean Platelet Volume 6.4 FL (6.5-10.1) L Neutrophils (%) (Auto) 70.0 % (45.0-75.0) Lymphocytes (%) (Auto) 16.5 % (20.0-45.0) L Monocytes (%) (Auto) 8.2 % (1.0-10.0) Eosinophils (%) (Auto) 4.8 % (0.0-3.0) H Basophils (%) (Auto) 0.4 % (0.0-2.0) Sodium Level Pending Potassium Level Pending Chloride Level Pending Carbon Dioxide Level Pending Blood Urea Nitrogen Pending Creatinine Pending Estimat Glomerular Filtration Rate Pending Glucose Level Pending Calcium Level Pending Magnesium Level Pending Current Medications Medications (Trade) Dose Ordered Sig/Felicita Route PRN Reason Start Time Stop Time Status Last Admin Dose Admin Acetaminophen (Tylenol) 650 mg Q4H PRN ORAL Mild Pain (Scale 1-3) or fever 12/04/16 12:34 01/03/17 12:33 Acetaminophen (Tylenol) 650 mg Q4H PRN RECTAL Mild Pain (Scale 1-3) or fever 12/04/16 12:34 01/03/17 12:33 Albuterol/ Ipratropium (DuoNeb 0.5-3(2.5)mg/3ml) 3 ml Q4H PRN HHN Shortness of Breath 12/04/16 12:36 12/09/16 12:35 Albuterol/ Ipratropium (DuoNeb 0.5-3(2.5)mg/3ml) 3 ml Q6HRT HHN 12/04/16 13:00 12/09/16 12:59 12/06/16 09:02 Alprazolam (Xanax) 0.25 mg BEDTIME ORAL 12/04/16 21:00 12/11/16 20:59 12/05/16 20:38 Ascorbic Acid (Vitamin C) 500 mg TWICE A DAY ORAL 12/04/16 18:00 01/03/17 17:59 12/06/16 09:19 Baclofen (Lioresal) 40 mg TID ORAL 12/04/16 13:00 01/03/17 12:59 12/06/16 09:19 Bisacodyl (Dulcolax) 10 mg HSPRN PRN RECTAL Constipation 12/04/16 12:35 01/03/17 12:34 Cefepime HCl/ Dextrose (Maxipime/D5W) 55 ml @ 110 mls/hr EVERY 12 HOURS IVPB 12/04/16 21:00 12/11/16 20:59 12/06/16 09:21 Cyanocobalamin (Vitamin B-12 Tab) 100 mcg DAILY ORAL 12/05/16 09:00 01/04/17 08:59 12/06/16 09:19 Dextrose (Dextrose 50%) STAT PRN IV Hypoglycemia 12/04/16 12:35 01/03/17 12:34 Docusate Sodium (Colace) 100 mg EVERY 12 HOURS ORAL 12/04/16 21:00 01/03/17 20:59 Heparin Sodium (Porcine) (Heparin 5000 units/ml) 5,000 units EVERY 12 HOURS SUBQ 12/04/16 21:00 01/03/17 20:59 Lorazepam (Ativan 2mg/ml 1ml) 0.5 mg Q4H PRN IV For Anxiety 12/04/16 12:36 12/11/16 12:35 Magnesium Hydroxide (Mom) 30 ml HSPRN PRN ORAL Constipation 12/04/16 23:00 01/03/17 22:59 Ondansetron HCl (Zofran) 4 mg Q6H PRN IVP Nausea & Vomiting 12/04/16 12:37 01/03/17 12:36 Polyethylene Glycol 17 gm 17 gm HSPRN PRN ORAL Constipation 12/04/16 12:37 01/03/17 12:36 Sodium (0.45%NS w/KCl 20mEq 1000ml) 1,000 ml @ 75 mls/hr [id number] IV 12/04/16 13:00 01/03/17 12:59 12/06/16 05:05 JOSE CARLOS DORAN Dec 06, 2016 12:01
--- NOTE | 2016-12-06 12:07 | Pulmonology Progress Note ---
Assessment/Plan Assessment/Plan ASSESSMENT sepsis UTI with Proteus acute toxic metabolic encephalopathy ( 2 to sepsis)-resolved MS dehydration hypotension dysphagia s/p catheter sacral decub unstageable POA hypo Mg dysphagia PLAN OF CARE MS floor O2 HHN prn to keep sat above 92% fup CXR 12/04 - no acute process abx, blood cx preliminary negative , urine cx + Proteus swallow eval with evidence of moderate dysphagia diet as per ST recommendation strict aspiration precautions VSS IVF watch BP closely PT/OT wound care as per wound nurse recommendations DVT prophylaxis bowel regimen replace K today case discussed and evaluated by supervising physician Subjective Allergies: Coded Allergies: ASPIRIN (Verified Adverse Reaction, Unknown, GI BLEED, 12/14/10) Subjective leukocytosis resolved, afebrile pulse oximetry stable on RA Objective Last 24 Hour Vital Signs Date Time Temp Pulse Resp B/P Pulse Ox O2 Delivery O2 Flow Rate FiO2 12/06/16 09:10 78 20 99 Room Air 12/06/16 08:59 87 18 99 Room Air 21 12/06/16 08:10 97.3 75 18 106/66 98 Room Air 12/06/16 04:17 98.3 78 18 114/73 96 Room Air 12/06/16 01:15 63 18 100 Room Air 12/06/16 01:09 62 18 96 Room Air 12/06/16 00:04 97.6 64 20 113/71 98 Room Air 12/05/16 20:12 98.1 66 20 103/64 96 Room Air 12/05/16 19:31 72 18 100 Room Air 12/05/16 19:26 67 16 97 Room Air 12/05/16 16:00 96.0 66 18 90/52 97 Room Air 12/05/16 13:38 69 18 99 Room Air 12/05/16 13:29 68 16 99 Room Air Intake and Output 12/05/16 12/06/16 19:00 07:00 Intake Total 1200 ml 1078.708 ml Output Total 1300 ml 1250 ml Balance -100 ml -171.292 ml Intake Oral 300 ml 240 ml IV Total 900 ml 838.708 ml Output Urine Total 1300 ml 1250 ml # Bowel Movements 3 2 Objective General Appearance: no acute distress, chronically ill looking, bedridden male, awake, alert, responsive HEENT: normocephalic, atraumatic, anicteric Respiratory/Chest: lungs clear, no respiratory distress, no accessory muscle use Cardiovascular: normal peripheral pulses, normal rate, regular rhythm Abdomen: soft, non tender, non distended Extremities: spastic LE Neurologic/Psychiatric: abnormal gait / bedridden, alert, responsive Musculoskeletal: atrophy - BLE Microbiology Date/Time Source Procedure Growth Status 12/03/16 21:49 Sputum Expectorated Gram Stain - Final Complete 12/03/16 21:49 Sputum Expectorated Sputum Culture - Final NORMAL UPPER RESPIRATORY SALMA PRESENT Complete Laboratory Tests 12/06/16 01:00: Random Vancomycin Level 13.2 12/06/16 05:50: White Blood Count 6.0, Red Blood Count 4.19L, Hemoglobin 12.8L, Hematocrit 39.3L , Mean Corpuscular Volume 94, Mean Corpuscular Hemoglobin 30.5, Mean Corpuscular Hemoglobin Concent 32.5, Red Cell Distribution Width 13.1, Platelet Count 137L, Mean Platelet Volume 6.4L, Neutrophils (%) (Auto) 70.0, Lymphocytes (%) (Auto) 16.5L, Monocytes (%) (Auto) 8.2, Eosinophils (%) (Auto) 4.8H, Basophils (%) (Auto) 0.4, Sodium Level 143, Potassium Level 3.0L, Chloride Level 104, Carbon Dioxide Level 27, Anion Gap 12, Blood Urea Nitrogen 10, Creatinine 0.8, Estimat Glomerular Filtration Rate > 60, Glucose Level 115H, Calcium Level 9.0, Magnesium Level 1.9 Current Medications Medications (Trade) Dose Ordered Sig/Felicita Route PRN Reason Start Time Stop Time Status Last Admin Dose Admin Acetaminophen (Tylenol) 650 mg Q4H PRN ORAL Mild Pain (Scale 1-3) or fever 12/04/16 12:34 01/03/17 12:33 Acetaminophen (Tylenol) 650 mg Q4H PRN RECTAL Mild Pain (Scale 1-3) or fever 12/04/16 12:34 01/03/17 12:33 Albuterol/ Ipratropium (DuoNeb 0.5-3(2.5)mg/3ml) 3 ml Q4H PRN HHN Shortness of Breath 12/04/16 12:36 12/09/16 12:35 Albuterol/ Ipratropium (DuoNeb 0.5-3(2.5)mg/3ml) 3 ml Q6HRT HHN 12/04/16 13:00 12/09/16 12:59 12/06/16 09:02 Alprazolam (Xanax) 0.25 mg BEDTIME ORAL 12/04/16 21:00 12/11/16 20:59 12/05/16 20:38 Ascorbic Acid (Vitamin C) 500 mg TWICE A DAY ORAL 12/04/16 18:00 01/03/17 17:59 12/06/16 09:19 Baclofen (Lioresal) 40 mg TID ORAL 12/04/16 13:00 01/03/17 12:59 12/06/16 09:19 Bisacodyl (Dulcolax) 10 mg HSPRN PRN RECTAL Constipation 12/04/16 12:35 01/03/17 12:34 Ceftriaxone Sodium/Dextrose (Rocephin/D5W) 50 ml @ 100 mls/hr Q24H IVPB 12/06/16 11:45 12/13/16 11:44 UNV Cyanocobalamin (Vitamin B-12 Tab) 100 mcg DAILY ORAL 12/05/16 09:00 01/04/17 08:59 12/06/16 09:19 Dextrose (Dextrose 50%) STAT PRN IV Hypoglycemia 12/04/16 12:35 01/03/17 12:34 Docusate Sodium (Colace) 100 mg EVERY 12 HOURS ORAL 12/04/16 21:00 01/03/17 20:59 Heparin Sodium (Porcine) (Heparin 5000 units/ml) 5,000 units EVERY 12 HOURS SUBQ 12/04/16 21:00 01/03/17 20:59 Lorazepam (Ativan 2mg/ml 1ml) 0.5 mg Q4H PRN IV For Anxiety 12/04/16 12:36 12/11/16 12:35 Magnesium Hydroxide (Mom) 30 ml HSPRN PRN ORAL Constipation 12/04/16 23:00 01/03/17 22:59 Ondansetron HCl (Zofran) 4 mg Q6H PRN IVP Nausea & Vomiting 12/04/16 12:37 01/03/17 12:36 Polyethylene Glycol 17 gm 17 gm HSPRN PRN ORAL Constipation 12/04/16 12:37 01/03/17 12:36 Sodium 1,000 ml @ 75 mls/hr [id number] IV 12/04/16 13:00 01/03/17 12:59 12/06/16 05:05 Mark Bossronald)Joanne NP Dec 06, 2016 12:07
[2016-12-06] MEDS ORDERED: KCl 10% 40mEq/30ml liquid NG ONE (12:45)
[2016-12-06 16:00] VITALS: BP 112/62
--- NOTE | 2016-12-06 18:12 | General Progress Note ---
Assessment/Plan Problem List: (1) Sepsis ICD Codes: A41.9 - Sepsis, unspecified organism SNOMED: 97329851 (2) Hypotension ICD Codes: I95.9 - Hypotension, unspecified SNOMED: 40894157 (3) Acute toxic metabolic encephalopathy (4) UTI (urinary tract infection) ICD Codes: N39.0 - Urinary tract infection SNOMED: 39291361 (5) Multiple sclerosis Assessment & Plan: Advanced MS ICD Codes: G35 - Multiple sclerosis SNOMED: 64352260 (6) Sacral decubitus ulcer Assessment & Plan: Sacral unstageable pressure ulcer ICD Codes: L89.159 - Pressure ulcer of sacral region, unspecified stage SNOMED: 461703796 Qualifiers: Qualified Codes: L89.154 - Pressure ulcer of sacral region, stage 4 (7) Right trochanter DTI surrounding skin with full thickness scar issue (8) Right ischial tuberosity DTI pressure ulcer (9) Hypomagnesemia ICD Codes: E83.42 - Hypomagnesemia SNOMED: 391720289 Status: stable Assessment/Plan Sepsis likely 2/2 UTI. Per pulm consult no e/o pneumonia Appreciate pulmonology and ID rec's Cont cefepime (12/02-) s/p vanco (12/02-12/04) F/u urine culture-->100K Proteus F/u blood cultures mIVFs Swallow eval F/u video swallow --> failed but pt wants to cont w/ PO and he understands the risks involved PT/OT Cont home meds DC planning. Per , would like to take pt home as he has a caregiver. Declines SNF. Per , pt needs transportation home on d/c DVT Prophylaxis: SCD, HSQ Code Status: DNR/DNI Hospital Classification Declaration: Based on this initial evaluation, and depending on the patient's clinical course, I anticipate that this patient will require hospitalization for 1-2 days for sepsis, UTI, PNA, and close respiratory /hemodynamic monitoring. Disposition: Once the patient is stable to leave the hospital, I anticipate the patient will likely be discharged to the following environment: home with HH +CG I spent 38 minutes on this patient's case, and >50% was dedicated to counseling and/or care coordination. Discussed with patient/family, nursing staff, SW/CM, ID, pulm regarding clinical status, treatment course, and disposition planning. D/w ID re abx. D/w re d/c planning Time of note may not reflect time of encounter. Subjective Date patient seen: Dec 06, 2016 Time patient seen: 18:11 ROS Limited/Unobtainable: No Constitutional: Reports: no symptoms HEENT: Reports: no symptoms Cardiovascular: Reports: no symptoms Respiratory: Reports: no symptoms Gastrointestinal/Abdominal: Reports: no symptoms Genitourinary: Reports: no symptoms Neurologic/Psychiatric: Reports: no symptoms Endocrine: Reports: no symptoms Hematologic/Lymphatic: Reports: no symptoms Allergies: Coded Allergies: ASPIRIN (Verified Adverse Reaction, Unknown, GI BLEED, 12/14/10) Subjective Afebrile Leukocytosis resolved K 3.0 Pt more awake, alert States appetite improving Denies cough, SOB, pain, f/c, n/v, d/c Failed video swallow - discussed with patient who states he would rather than not be able to eat PO. D/w pt's Objective Last 24 Hour Vital Signs Date Time Temp Pulse Resp B/P Pulse Ox O2 Delivery O2 Flow Rate FiO2 12/06/16 13:35 75 16 99 Room Air 21 12/06/16 13:23 83 16 97 Room Air 21 12/06/16 12:00 96.4 77 18 103/57 97 Room Air 12/06/16 08:10 97.3 75 18 106/66 98 Room Air 12/06/16 07:12 78 20 99 Room Air 12/06/16 07:10 87 18 99 Room Air 21 12/06/16 04:17 98.3 78 18 114/73 96 Room Air 12/06/16 01:15 63 18 100 Room Air 12/06/16 01:09 62 18 96 Room Air 12/06/16 00:04 97.6 64 20 113/71 98 Room Air 12/05/16 20:12 98.1 66 20 103/64 96 Room Air 12/05/16 19:31 72 18 100 Room Air 12/05/16 19:26 67 16 97 Room Air Intake and Output 12/05/16 12/06/16 19:00 07:00 Intake Total 1200 ml 1078.708 ml Output Total 1300 ml 1250 ml Balance -100 ml -171.292 ml Intake Oral 300 ml 240 ml IV Total 900 ml 838.708 ml Output Urine Total 1300 ml 1250 ml # Bowel Movements 3 2 Laboratory Tests 12/06/16 01:00: Random Vancomycin Level 13.2 12/06/16 05:50: White Blood Count 6.0, Red Blood Count 4.19L, Hemoglobin 12.8L, Hematocrit 39.3L , Mean Corpuscular Volume 94, Mean Corpuscular Hemoglobin 30.5, Mean Corpuscular Hemoglobin Concent 32.5, Red Cell Distribution Width 13.1, Platelet Count 137L, Mean Platelet Volume 6.4L, Neutrophils (%) (Auto) 70.0, Lymphocytes (%) (Auto) 16.5L, Monocytes (%) (Auto) 8.2, Eosinophils (%) (Auto) 4.8H, Basophils (%) (Auto) 0.4, Sodium Level 143, Potassium Level 3.0L, Chloride Level 104, Carbon Dioxide Level 27, Anion Gap 12, Blood Urea Nitrogen 10, Creatinine 0.8, Estimat Glomerular Filtration Rate > 60, Glucose Level 115H, Calcium Level 9.0, Magnesium Level 1.9 Height (Feet): 6 Height (Inches): 3.00 Weight (Pounds): 136 Objective General: alert, cooperative, no distress, appears stated age Head: normocephalic, without obvious abnormality, atraumatic Eyes: conjunctivae/corneas clear. PERRL, EOM's intact Throat: lips, mucosa, and tongue normal. MMM Neck: supple, symmetrical, trachea midline, and no JVD Lungs: clear to auscultation bilaterally Heart: regular rate and rhythm, S1, S2 normal, no murmur, click, rub or gallop Abdomen: soft, non-tender, non-distended, bowel sounds normal; no masses or organomegaly : +suprapubic catheter c/d/i Extremities: extremities normal, atraumatic, no cyanosis or edema Pulses: 2+ and symmetric Skin: skin color, texture, turgor normal; no rashes or lesions Neurologic: grossly normal, no focal deficits Ailyn Juan M.D. Dec 06, 2016 18:12
[2016-12-06 20:00] VITALS: BP 113/68
[2016-12-06] MEDS: ALPRAZolam 0.25mg tab ORAL SCH (20:55)
[2016-12-06] MEDS ORDERED: cefTRIAXone 1 GM in D5W 50 ML IVPB SCH (21:00)
[2016-12-07 00:13] VITALS: BP 115/76
[2016-12-07] MEDS: DuoNeb 0.5-3(2.5)mg/3ml neb HHN SCH ×2 (01:00→07:20)
[2016-12-07 04:02] VITALS: BP 109/67
[2016-12-07 07:39] LABS: ANION GAP 11 (5-15); CALCIUM 9.5 mg/dL (8.6-10.2); CARBON DIOXIDE 28 mEQ/L (20-30); CHLORIDE 103 mEQ/L (98-107); CREATININE 0.7 mg/dL (0.7-1.2); GLOMERULAR FILTRATION RATE > 60 mL/min (>60); HEMOLYSIS 5; POTASSIUM 3.5 mEQ/L (3.4-4.9); SODIUM 142 mEQ/L (135-145)
[2016-12-07 08:00] VITALS: BP 118/53
[2016-12-07] MEDS: Heparin 5000 units/ml inj SUBQ SCH (08:20)
[2016-12-07] MEDS: Vitamin B-12 100mcg tab ORAL SCH (08:20)
[2016-12-07] MEDS: 1/2NS w/KCl 20mEq 1000ml 1,000 ML IV SCH (08:20)
[2016-12-07] MEDS: Ascorbic Acid 500mg tab ORAL SCH (08:20)
[2016-12-07] MEDS: Docusate 100mg cap ORAL SCH (08:21)
[2016-12-07] MEDS ORDERED: CIPROFLOXACIN500 M2 ORAL (09:52)
[2016-12-07] MEDS ORDERED: D5W 275ml ONE (11:44)
[2016-12-07] MEDS ORDERED: NS 275ml ONE (11:44)
--- NOTE | 2016-12-07 14:28 | Pulmonology Progress Note ---
Assessment/Plan Problems: (1) Sepsis (2) Sacral decubitus ulcer (3) Suprapubic catheter (4) Multiple sclerosis Assessment/Plan improving continue abx check electrolytes ok to dc to previous setting Subjective ROS Limited/Unobtainable: No Constitutional: Reports: no symptoms HEENT: Repors: no symptoms Respiratory: Reports: no symptoms Allergies: Coded Allergies: ASPIRIN (Verified Adverse Reaction, Unknown, GI BLEED, 12/14/10) Objective Last 24 Hour Vital Signs Date Time Temp Pulse Resp B/P Pulse Ox O2 Delivery O2 Flow Rate FiO2 12/07/16 08:00 78 18 118/53 98 12/07/16 07:20 Room Air 12/07/16 07:20 Room Air 12/07/16 04:02 97.7 79 18 109/67 98 Room Air 12/07/16 01:01 Room Air 12/07/16 01:01 Room Air 12/07/16 00:13 97.7 96 19 115/76 97 Room Air 12/06/16 20:00 96.8 82 18 113/68 98 Room Air 12/06/16 19:22 83 16 99 Room Air 21 12/06/16 19:17 78 16 98 Room Air 21 12/06/16 16:00 96.7 62 20 112/62 98 Room Air Intake and Output 12/06/16 12/07/16 19:00 07:00 Intake Total 1020 ml 800 ml Output Total 1900 ml 950 ml Balance -880 ml -150 ml Intake Oral 120 ml IV Total 900 ml 800 ml Output Urine Total 1900 ml 950 ml # Bowel Movements 3 2 General Appearance: WD/WN HEENT: normocephalic, atraumatic Respiratory/Chest: chest wall non-tender, lungs clear Cardiovascular: normal peripheral pulses, normal rate Extremities: no cyanosis, no clubbing Neurologic/Psychiatric: eligibility supervisor II-XII grossly normal, no motor/sensory deficits Laboratory Tests 12/07/16 05:30: Sodium Level 142, Potassium Level 3.5, Chloride Level 103, Carbon Dioxide Level 28, Anion Gap 11, Blood Urea Nitrogen 11, Creatinine 0.7, Estimat Glomerular Filtration Rate > 60, Glucose Level 94, Calcium Level 9.5, Magnesium Level 2.0 OZZIE PAK Dec 07, 2016 14:28
--- NOTE | 2016-12-07 23:34 | Discharge Summary ---
Discharge Summary Hospital Course Date of Admission Dec 02, 2016 at 19:57 Date of Discharge Dec 07, 2016 at 11:45 Admitting Diagnosis pneumonia HPI Fortunato Jacques is a 66 year old male who was admitted on Dec 02, 2016 at 19:57 for Pneumonia Discharge Medications New Medications: Ciprofloxacin Hcl* (Ciprofloxacin Hcl*) 500 Mg Tablet 500 MG ORAL Q12H for 7 Days, #14 TAB 0 Refills Continued Medications: Acetaminophen* (Tylenol Extra Strength*) 500 Mg Tablet 500 MG ORAL Q4HR PRN for Mild Pain/Temp > 100.5, TAB 0 Refills Alprazolam* (Xanax*) 0.25 Mg Tablet 0.25 MG ORAL BEDTIME, #30 TAB 0 Refills Ascorbic Acid* (Vitamin C*) 250 Mg Tablet 250 MG ORAL DAILY, #30 TAB 0 Refills Ascorbic Acid* (Ascorbic Acid*) 500 Mg Tablet 500 MG ORAL TWICE A DAY, TAB Baclofen* (Baclofen*) 10 Mg Tablet 40 MG ORAL THREE TIMES A DAY, TAB Calcium Citrate (Calcium Citrate) 480 Gm Granules 950 GM PO DAILY, GM Cholecalciferol (Vitamin D3) (Vitamin D-3) 2,000 Unit Capsule 2000 UNIT PO DAILY, CAP Cholecalciferol (Vitamin D3) (Vitamin D) 400 Unit Capsule 400 UNIT PO, CAP Cholecalciferol (Vitamin D3) (Vitamin D) 2,000 Unit Capsule 2000 UNIT PO DAILY, CAP Collagenase Clostridium Hist. (Santyl) 30 Gm Oint 1 APPLIC TP, #15 GM 0 Refills Cyanocobalamin (Vitamin B-12) 100 Mcg Tab 100 MCG ORAL DAILY, #30 TAB 0 Refills Docusate Sodium (Colace Clear) 50 Mg Capsule 100 MG PO DAILY PRN for Constipation, CAP Hydrocodone/Acetaminophen 5-500 (Vicodin 5-500) 1 Each Tablet 1 TAB PO Q8H, #20 TAB Take 1 tablet by mouth every eight hours as needed for pain. Menthol (Calmoseptine Ointment) 1 Applic Applic 1 APPLIC TOPIC THREE TIMES A DAY PRN for rash, APPLIC Na Phos,M-B/Na Phos,Di-Ba (Fleet Enema) 133 Ml Enema 133 ML RC DAILY PRN for Constipation, EA Papain (Papaya) 100 Mg Tablet 100 MG PO DAILY, TAB [place] Jelly ([place] Jelly) 200 Mg Capsule 1 SCOOP PO DAILY, CAP Vitamin A* (Vitamin A*) 10,000 Unit Capsule 00930 UNIT ORAL DAILY, #14 CAP 0 Refills Discontinued Medications: Ciprofloxacin* (Cipro*) 500 Mg Tablet 500 MG PO BID, TAB Start on 09/27/14 Discharge Condition Upon Discharge: stable Discharge Disposition Patient was discharged to Home with Home Health(06) Discharge Diagnoses: Ailyn Juan M.D. Dec 07, 2016 23:34
--- NOTE | 2016-12-10 15:40 | Diagnostic Imaging Report ---
Indication: Dysphasia Procedure and findings: Real-time fluoroscopic imaging performed in a lateral projection in conjunction with the speech pathologist evaluation. Variable consistencies of barium given per mouth. Findings: Significant abnormalities of both oral and pharyngeal phases of swallowing are demonstrated. Total fluoroscopic time 349 seconds. Penetration occurred with variable consistencies of barium. Silent aspiration noted with thin barium. Abnormal video swallow. Please refer to speech pathology evaluation for more information.
--- NOTE | 2016-12-16 11:34 | Discharge Summary ---
Discharge Summary Hospital Course Date of Admission Dec 02, 2016 at 19:57 Date of Discharge Dec 07, 2016 at 11:45 Admitting Diagnosis sepsis HPI Fortunato Jacques is a 66 year old male , with hx of MS, s/p catheter, sacral decubitus, was admitted on Dec 02, 2016 at 19:57 patient was brought for evaluation for altered mental status and not eating well Pt denied chest pain, SOB, f/c, n/v, d/c, abd pain. In ED, pt with fever to 102, labs showed WBC- 13.3K. , lactic acid WNL, low BP, UA + pyuriam CXR with possible infiltrate Pt given 1L NS bolus x2, Ceftriaxone and Levaquin.in ED patient was admitted for possible sepsis, UTI, PNA, altered mental status due to toxic metabolic encephalopathy likely 2 to sepsis, MS, sacral decub Consultations dr Santos S-ID [facility] Course O2 to keep sat above 92% HHN prn CXR reviewed by [facility]- no PNA fup CXR 12/04 - no acute process prior to dc pulse oximetry stable on RA abx, blood cx negative , urine cx + Proteus ID followed abx changed to po prior to discharge to complete the course as per ID recommendations swallow eval with evidence of moderate dysphagia VSS with high silent aspiration risk diet for quality of life as per ST recommendations, strict aspiration precautions, 1 to 1 feeding IVF, dc prior to discharge BP stabilized PT/OT wound care as per wound nurse recommendations DVT prophylaxis bowel regimen e/lyte replaced and stable declined placement to SNF dc home with services FINAL DIAGNOSES sepsis UTI with Proteus acute toxic metabolic encephalopathy ( 2 to sepsis)-resolved MS dehydration hypotension dysphagia s/p catheter sacral decub un-stageable, POA hypo Mg dysphagia right trochanter DTI surrounding skin with full thickness scar issue right ischial tuberosity DTI pressure ulcer Discharge Medications New Medications: Ciprofloxacin Hcl* (Ciprofloxacin Hcl*) 500 Mg Tablet 500 MG ORAL Q12H for 7 Days, #14 TAB 0 Refills Continued Medications: Acetaminophen* (Tylenol Extra Strength*) 500 Mg Tablet 500 MG ORAL Q4HR PRN for Mild Pain/Temp > 100.5, TAB 0 Refills Alprazolam* (Xanax*) 0.25 Mg Tablet 0.25 MG ORAL BEDTIME, #30 TAB 0 Refills Ascorbic Acid* (Vitamin C*) 250 Mg Tablet 250 MG ORAL DAILY, #30 TAB 0 Refills Ascorbic Acid* (Ascorbic Acid*) 500 Mg Tablet 500 MG ORAL TWICE A DAY, TAB Baclofen* (Baclofen*) 10 Mg Tablet 40 MG ORAL THREE TIMES A DAY, TAB Calcium Citrate (Calcium Citrate) 480 Gm Granules 950 GM PO DAILY, GM Cholecalciferol (Vitamin D3) (Vitamin D-3) 2,000 Unit Capsule 2000 UNIT PO DAILY, CAP Cholecalciferol (Vitamin D3) (Vitamin D) 400 Unit Capsule 400 UNIT PO, CAP Cholecalciferol (Vitamin D3) (Vitamin D) 2,000 Unit Capsule 2000 UNIT PO DAILY, CAP Collagenase Clostridium Hist. (Santyl) 30 Gm Oint 1 APPLIC TP, #15 GM 0 Refills Cyanocobalamin (Vitamin B-12) 100 Mcg Tab 100 MCG ORAL DAILY, #30 TAB 0 Refills Docusate Sodium (Colace Clear) 50 Mg Capsule 100 MG PO DAILY PRN for Constipation, CAP Hydrocodone/Acetaminophen 5-500 (Vicodin 5-500) 1 Each Tablet 1 TAB PO Q8H, #20 TAB Take 1 tablet by mouth every eight hours as needed for pain. Menthol (Calmoseptine Ointment) 1 Applic Applic 1 APPLIC TOPIC THREE TIMES A DAY PRN for rash, APPLIC Na Phos,M-B/Na Phos,Di-Ba (Fleet Enema) 133 Ml Enema 133 ML RC DAILY PRN for Constipation, EA Papain (Papaya) 100 Mg Tablet 100 MG PO DAILY, TAB [place] Jelly ([place] Jelly) 200 Mg Capsule 1 SCOOP PO DAILY, CAP Vitamin A* (Vitamin A*) 10,000 Unit Capsule 52910 UNIT ORAL DAILY, #14 CAP 0 Refills Discontinued Medications: Ciprofloxacin* (Cipro*) 500 Mg Tablet 500 MG PO BID, TAB Start on 09/27/14 Discharge Condition Upon Discharge: stable Discharge Disposition Patient was discharged to Home with Home Health(06) Discharge Diagnoses: Mark (Joanne Henderson NP Dec 16, 2016 11:34
== END 2016-12-07 11:45 | disposition home health service (06) | DRG 871 ==
LOC: EDBD 19:26 → EMR 19:55 → 4W 19:57 → EDBEDREQ 21:29 → 2E 12-03 00:36 → 4W 12-04 13:37
DX: A41.9 Sepsis, unspecified organism (principal); J18.9 Pneumonia, unspecified organism; L89.150 Pressure ulcer of sacral region, unstageable; L89.210 Pressure ulcer of right hip, unstageable; G92 Toxic encephalopathy; L89.310 Pressure ulcer of right buttock, unstageable; G35 Multiple sclerosis; R13.10 Dysphagia, unspecified; E83.42 Hypomagnesemia; N39.0 Urinary tract infection, site not specified; E86.0 Dehydration; M24.50 Contracture, unspecified joint; Z88.6 Allergy status to analgesic agent; Z43.5 Encounter for attention to cystostomy; B96.4 Proteus (mirabilis) (morganii) as the cause of diseases classified elsewhere
CPT/HCPCS: 36415; 71010; 74230; 80048; 80053; 80202; 81003; 82306; 82550; 82607; 82728; 82746; 83605; 83735; 83880; 84100; 84443; 84484; 85007; 85025; 85610; 85730; 87040; 87070; 87086; 87181; 87205; 93005; 94640; 94664; J7620; J8499

== ENCOUNTER → 2017-05-06 | Outpatient (RCR) | payer MEDICARE ==
[~2017-05-06] VITALS: Ht 185.4 cm; Wt 74.8 kg
[~2017-05-06] MED LIST changes: +CIPROFLOXACIN500 M2 ORAL; +Lidocaine 2% MPF 5ml Vial INJ ONE
== END | disposition home or self-care (01) ==
LOC: WCC 11:50
DX: L89.150 Pressure ulcer of sacral region, unstageable (principal); G35 Multiple sclerosis
CPT/HCPCS: 11043

== ENCOUNTER 2017-05-20 11:01 | Outpatient (RCR) | payer MEDICARE ==
[~2017-05-20] VITALS: Ht 190.5 cm; Wt 74.8 kg
[~2017-05-20 11:01] MED LIST changes: -Lidocaine 2% MPF 5ml Vial INJ ONE
== END 2017-06-06 | disposition home or self-care (01) ==
LOC: WCC 11:01
DX: L89.150 Pressure ulcer of sacral region, unstageable (principal); Z82.3 Family history of stroke; Z82.49 Family history of ischemic heart disease and other diseases of the circulatory system; G35 Multiple sclerosis
CPT/HCPCS: 11043; 97605

== ENCOUNTER 2017-06-10 11:20 | Outpatient (RCR) | payer MEDICARE | END 2017-07-07 | disposition home or self-care (01) | LOC: WCC 11:20 | DX: L89.154 Pressure ulcer of sacral region, stage 4 (principal); G35 Multiple sclerosis | CPT/HCPCS: 11043; 11044; 97605 ==

== ENCOUNTER 2017-07-22 11:19 | Outpatient (RCR) | payer MEDICARE | END 2017-08-04 | disposition home or self-care (01) | LOC: WCC 11:19 | DX: L89.154 Pressure ulcer of sacral region, stage 4 (principal); Z99.3 Dependence on wheelchair; N39.0 Urinary tract infection, site not specified; G82.22 Paraplegia, incomplete; G35 Multiple sclerosis | CPT/HCPCS: 11044; 15271; Q4110 ==

== ENCOUNTER 2017-08-05 11:37 | Outpatient (RCR) | payer MEDICARE | END 2017-09-04 | disposition home or self-care (01) | LOC: WCC 11:37 | DX: L89.150 Pressure ulcer of sacral region, unstageable (principal); G35 Multiple sclerosis | CPT/HCPCS: 11043; 11044; 15271; Q4132 ==

== ENCOUNTER 2017-09-09 12:34 | Outpatient (RCR) | payer MEDICARE | END 2017-10-04 | disposition home or self-care (01) | LOC: WCC 12:34 | DX: L89.154 Pressure ulcer of sacral region, stage 4 (principal); G35 Multiple sclerosis; Z99.3 Dependence on wheelchair; Z82.3 Family history of stroke; Z82.49 Family history of ischemic heart disease and other diseases of the circulatory system | CPT/HCPCS: 11042; 11043; 82962 ==

== ENCOUNTER 2017-10-07 12:09 | Outpatient (RCR) | payer MEDICARE | END 2017-11-04 | disposition home or self-care (01) | LOC: WCC 12:09 | DX: L89.159 Pressure ulcer of sacral region, unspecified stage (principal); G35 Multiple sclerosis; Z74.01 Bed confinement status | CPT/HCPCS: G0463 ==